=== PATIENT | male | born 1955 | race Caucasian/White ===

== ENCOUNTER 2021-02-16 10:43 | Inpatient (IN) | payer OTHER, SELFPAY ==
[2021-02-16] VITALS (7 sets, daily range): BP systolic 99–134; BP diastolic 54–96; PULSE 89–103; RESP 16–18; TEMP 36.9–39.4; O2SAT 94–97; BMI 28.8
--- NOTE | ~2021-02-16 | CT_ITS ---
EXAMINATION: CT ABDOMEN AND PELVIS WITH CONTRAST CLINICAL INFORMATION: Rectal pain. History of perirectal fistula. Evaluate for abscess. COMPARISON: Previous CT of the abdomen and pelvis most recent January 2017 TECHNIQUE: Multidetector volumetric images were obtained from the superior aspect of the liver through the pubic symphysis following administration 85 mL of Omnipaque 350 intravenous contrast. Sagittal and coronal reformatted images were obtained on the technologist's workstation. Oral contrast: Yes This CT examination was performed using dose optimization techniques as appropriate, variously including the following: *Automated exposure control *Adjustment of mA and/or kV according to patient size (this includes techniques or standardized protocols for targeted exams where dose is matched to indication/reason for exam; i.e. extremities or head) *Use of iterative reconstruction technique DLP: 849 mGy-cm FINDINGS: LUNG BASES: The visualized lung bases are unremarkable. LIVER, GALLBLADDER, AND BILIARY TREE: The liver is normal in size, shape, and attenuation. No focal hepatic lesion or biliary ductal dilatation is present. The gallbladder is unremarkable with no evidence of radiopaque gallstones, gallbladder wall thickening, or obvious pericholecystic inflammatory changes. PANCREAS: Unremarkable. SPLEEN: Unremarkable. ADRENAL GLANDS: Unremarkable. KIDNEYS AND URETERS: The kidneys are normal in size, shape, and attenuation. No hydronephrosis, hydroureter, or calculi seen. No perinephric stranding. BLADDER: Unremarkable. GASTROINTESTINAL TRACT: There is abnormal soft tissue seen adjacent to the posterior rectum. This abuts the left posterior wall of the rectum at approximately the 5:00 axis. Abnormal soft tissue crosses the midline extending to the skin of the right buttock. This has a thick slightly high attenuation wall and is lower in attenuation centrally. Appearance is compatible with a fistula. Low-attenuation central component is a suggestive of a possible of fluid in the fistula. This measures 0.5 x 1 x 2 cm in transverse AP and longitudinal dimension. A separate a perirectal abscess is not appreciated. There is diffuse wall thickening of the rectum. There is stranding of the perirectal fat. There are prominent vessels/vasa recta. There is a small perirectal lymph node measuring 6 x 7 mm adjacent to the posterior right rectal wall at the 7:00 axis axial image 70 series 3. There is diverticulosis of the colon. Small and large bowel is otherwise unremarkable. The appendix is unremarkable. ABDOMINAL WALL: There is a small umbilical hernia containing fat. LYMPH NODES: Small perirectal lymph node as described above. No enlarged lymph nodes seen. VASCULAR: Unremarkable. PELVIC VISCERA: Unremarkable. OSSEOUS STRUCTURES: There are degenerative changes of the spine. There is mild retrolisthesis of L3 with respect to L4. CT/CT abdomen pelvis w con IMPRESSION: Abnormal soft tissue extending from the left posterior wall of the rectum at the 5:00 axis crossing the midline ending at the skin surface of the right buttock. CT appearance is compatible with no diagnosis of perirectal fistula. There is a small amount of low central attenuation suggestive of fluid in the fistula tract near the rectum. This measures 0.5 x 1 x 2 cm. A separate perirectal abscess is not seen. There is diffuse wall thickening of the rectum, stranding of the surrounding fat, prominent vascularity and small perirectal lymph node. Findings are suggestive of proctitis.
--- NOTE | 2021-02-16 11:05 | ED.SKABFB ---
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 Patient tells me he has a lot of pain with moving his bowels but is able to pass a small amount of stool. No abdominal pain, nausea, vomiting, rectal bleeding or black or bloody stools. No fevers or chills. Related Data Home Medications Medication Instructions Recorded Confirmed loratadine 10 mg PO DAILY PRN 02/16/21 02/16/21 Allergies Allergy/AdvReac Type Severity Reaction Status Date / Time Penicillins Allergy Mild RASH/VOMITI Unverified 07/30/20 15:37 NG penicillin V Allergy Unknown Verified 11/26/15 00:00 Review of Systems Review of Systems: Yes all other systems are reviewed and are negative Constitutional: Constitutional: Reports no additional constitutional complaints, Denies body ache(s), Denies chills, Denies fever(s), Denies headache(s) and Denies weakness Eyes: Eyes: Reports no additional eye complaints and Denies change in vision ENT: Reports system reviewed and no additional complaints, except as documented, Denies dizziness, Denies headache(s), Denies nasal congestion, Denies nasal discharge and Denies neck pain Cardiovascular: Cardiovascular: Reports no additional cardiovascular complaints, Denies chest pain, Denies leg edema and Denies dyspnea Respiratory: Respiratory: Reports no additional respiratory complaints, Denies cough and Denies dyspnea Gastrointestinal: Gastrointestinal: Reports no additional gastrointestinal complaints, Denies abdominal pain, Denies melena, Denies hematochezia, Denies diarrhea, Denies nausea and Denies vomiting Comments: +rectal pain Genitourinary: Genitourinary: Denies urinary incontinence Musculoskeletal: Musculoskeletal: Reports no additional musculoskeletal complaints, Denies back pain, Denies arthralgias, Denies joint swelling, Denies neck pain, Denies numbness and Denies tingling Integumentary/Breasts: Skin/Breast: Reports system reviewed and no additional complaints, except as docu and Denies rash Neurologic: Reports system reviewed and no additional complaints, except as documented, Denies Abnormal speech present, Denies dizziness, Denies headache(s), Denies numbness, Denies tingling and Denies weakness PMFSH Past Medical History Attestation statement: The following information was validated with the patient. Source: old records reviewed and nursing notes reviewed Medical History Rectal fistula Social History Social History Alcohol intake: never Smoking Status: Former smoker Use of substances other than those prescribed or required for medical reasons: No Advance Directives: Yes Advance Directives Information Provided: No Advance Directives on File: No Physical Exam Vital Signs: Vital Signs: Last Vital Signs Temp 101.8 F H 02/16/21 13:28 Pulse 103 H 02/16/21 13:28 Resp 18 02/16/21 13:28 BP 117/96 H 02/16/21 13:28 Pulse Ox 95 02/16/21 13:28 Body Mass Index 28.8 Const: General: cooperative, healthy appearing, comfortable and no acute distress Orientation/consciousness: patient oriented x3 Limitations: no limitations HENMT: Head: Yes normal to inspection Ears: hearing grossly normal bilaterally General nose exam: Normal external nose present Face and sinus: Yes normal facial exam Mouth: Normal oral and palatal mucosa present Throat: Yes posterior oropharynx normal Eyes: General: appearance normal, both eyes and all related structures Pupils: Equal, round and reactive pupils present Neck: Neck: Yes normal visual inspection Chest: Chest palpation & inspection: normal inspection of the chest Resp: Effort & Inspection: normal respiratory effort Auscultation: clear to auscultation bilaterally Cardio: Rate: regular rate Rhythm: regular rhythm Peripheral pulses: Peripheral pulses 2+ throughout GI: Other: 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 Patient has tenderness from 6:00 to 12:00 and is unable to tolerate a rectal exam. There is no obvious fistula, swelling but there is significant tenderness Inspection: Yes normal to inspection Palpation (GI): Soft to palpation and nontender Auscultation: normal bowel sounds Back/Spine/Pelvis: Thoracic/Lumbar Spine: thoracic and lumbar spine normal to inspection Skin: General skin exam: no rashes or lesions noted Neuro: General: patient oriented x3, no focal motor deficits and normal sensation to monofilament Cranial nerves: Yes Equal, round and reactive pupils present Cognition (Neuro): normal cognition Speech: No Abnormal speech present Gait exam (Neuro): Normal gait present Motor exam (neuro): 5/5 motor strength present throughout Extrem: General: Yes normal to inspection Course Course Course Narrative: 65-year-old male with a past medical history of perirectal fistula here with rectal pain x4 days. Will need labs, CTA/P, analgesia. 1340-Ct shows Abnormal soft tissue extending from the left posterior wall of the rectum at the 5:00 axis crossing the midline ending at the skin surface of the right buttock. CT appearance is compatible with no diagnosis of perirectal fistula. There is a small amount of low central attenuation suggestive of fluid in the fistula tract near the rectum. This measures 0.5 x 1 x 2 cm. A separate perirectal abscess is not seen. There is diffuse wall thickening of the rectum, stranding of the surrounding fat, prominent vascularity and small perirectal lymph node. Findings are suggestive of proctitis. No leukocytosis. Went to evaluate the patient and he now is febrile and tachycardic. At this time infection is suspected. Antibiotics ordered. -1340- discussed with Dr. Ruiz from surgery. He will admit the patient MDM - Skin/Abscess/Foreign Bdy MDM Narrative Medical decision making narrative: Perirectal abscess, perirectal fistula, proctitis Medical Records Attestation: I reviewed the patient's medical records. Lab Data Attestation: I reviewed the patient's lab results. Result diagrams: 02/16/21 11:14 02/16/21 11:14 Labs: Lab Results 02/16/21 02/16/21 02/16/21 Range/Units 11:14 11:14 11:14 WBC 6.0 (4.8-10.8) X10*3/uL RBC 4.81 (4.60-5.80) X10*6/uL Hgb 14.3 (14.0-18.0) g/dl Hct 43.7 (42-52) % MCV 90.9 (80-98) fL MCH 29.7 (27.0-33.0) pg MCHC 32.7 (31.0-36.0) g/dl RDW 12.5 (11.0-16.0) % Plt Count 186 (160-400) X10*3/uL MPV 9.6 (9.4-12.4) fL Immature Gran % (Auto) 0.3 (0.0-0.4) % Neut % (Auto) 73.7 H (45-73) % Lymph % (Auto) 14.4 L (20-40) % [place] % (Auto) 9.6 (2-11) % Eos % (Auto) 1.7 (0-4) % Baso % (Auto) 0.3 (0-2) % Lymph # (Auto) 0.9 L (1.2-4.9) X10*3/uL [place] # (Auto) 0.6 (0.1-1.2) X10*3/uL Eos # (Auto) 0.1 (0.0-0.4) X10*3/uL Baso # (Auto) 0.0 (0.0-0.2) X10*3/uL Abs Immat Gran (auto) 0.02 (0.00-0.03) X10*3/uL Absolute Neuts (auto) 4.4 (2.0-8.3) X10*3/uL Absolute Nucleated RBC 0.000 (0.0-0.012) X10*3/uL Nucleated RBC % (auto) 0.0 (0.0-0.2) /100WBC Hold Blue Top SEE NOTE Sodium 139 (135-145) mmol/L Potassium 3.9 (3.3-5.1) mmol/L Chloride 104 (96-108) mmol/L Carbon Dioxide 30 H (22-29) mmol/L Anion Gap 9 L (12-20) BUN 7 L (9-16) mg/dL Creatinine 0.86 (0.5-1.4) mg/dL Estim Creat Clear Calc 94.2 Estimated GFR > 60 Random Glucose 118 H (60-115) mg/dL Lactic Acid (0.5-2.0) mmol/L Calcium 8.3 L (8.4-10.2) mg/dL Total Bilirubin 1.0 (0.0-1.0) mg/dL Direct Bilirubin 0.3 (0.0-0.5) mg/dL AST 16 (5-37) U/L ALT 20 (0-40) U/L Alkaline Phosphatase 88 (39-117) U/L Total Protein 6.8 (6.5-8.0) g/dL Albumin 3.9 (3.5-5.0) g/dL /05/03 Range/Units 11:15 WBC (4.8-10.8) X10*3/uL RBC (4.60-5.80) X10*6/uL Hgb (14.0-18.0) g/dl Hct (42-52) % MCV (80-98) fL MCH (27.0-33.0) pg MCHC (31.0-36.0) g/dl RDW (11.0-16.0) % Plt Count (160-400) X10*3/uL MPV (9.4-12.4) fL Immature Gran % (Auto) (0.0-0.4) % Neut % (Auto) (45-73) % Lymph % (Auto) (20-40) % [place] % (Auto) (2-11) % Eos % (Auto) (0-4) % Baso % (Auto) (0-2) % Lymph # (Auto) (1.2-4.9) X10*3/uL [place] # (Auto) (0.1-1.2) X10*3/uL Eos # (Auto) (0.0-0.4) X10*3/uL Baso # (Auto) (0.0-0.2) X10*3/uL Abs Immat Gran (auto) (0.00-0.03) X10*3/uL Absolute Neuts (auto) (2.0-8.3) X10*3/uL Absolute Nucleated RBC (0.0-0.012) X10*3/uL Nucleated RBC % (auto) (0.0-0.2) /100WBC Hold Blue Top Sodium (135-145) mmol/L Potassium (3.3-5.1) mmol/L Chloride (96-108) mmol/L Carbon Dioxide (22-29) mmol/L Anion Gap (12-20) BUN (9-16) mg/dL Creatinine (0.5-1.4) mg/dL Estim Creat Clear Calc Estimated GFR Random Glucose (60-115) mg/dL Lactic Acid 1.1 (0.5-2.0) mmol/L Calcium (8.4-10.2) mg/dL Total Bilirubin (0.0-1.0) mg/dL Direct Bilirubin (0.0-0.5) mg/dL AST (5-37) U/L ALT (0-40) U/L Alkaline Phosphatase (39-117) U/L Total Protein (6.5-8.0) g/dL Albumin (3.5-5.0) g/dL Imaging Data CT scan - abdomen: Attestation: I personally reviewed and interpreted this imaging study as follows: Radiologist's impression: Abnormal soft tissue extending from the left posterior wall of the rectum at the 5:00 axis crossing the midline ending at the skin surface of the right buttock. CT appearance is compatible with no diagnosis of perirectal fistula. There is a small amount of low central attenuation suggestive of fluid in the fistula tract near the rectum. This measures 0.5 x 1 x 2 cm. A separate perirectal abscess is not seen. There is diffuse wall thickening of the rectum, stranding of the surrounding fat, prominent vascularity and small perirectal lymph node. Findings are suggestive of proctitis. Discharge Plan Discharge Clinical Impression: Fistula, perirectal, Acute proctitis, Fever Patient Disposition: Admitted As Inpatient
[2021-02-16] MEDS: Morphine Sulfate 4 MG/ML CARTRIDGE IVPUSH (11:20)
[2021-02-16 11:22] LABS: MANUAL DIFF FLAG NO
[2021-02-16 11:23] LABS: Basophils Percent Auto 0.3 % (0-2); Eosinophils Absolute Auto 0.1 X10*3/uL (0.0-0.4); Eosinophils Percent Auto 1.7 % (0-4); Hematocrit 43.7 % (42-52); Hemoglobin 14.3 g/dl (14.0-18.0); Imm Gran Abs Auto 0.02 X10*3/uL (0.00-0.03); Imm Gran Pct Auto 0.3 % (0.0-0.4); Lymphocytes Absolute Auto 0.9 X10*3/uL (1.2-4.9); Lymphocytes Percent Auto 14.4 % (20-40); Mean Corpuscular HGB Conc 32.7 g/dl (31.0-36.0); Mean Corpuscular Hemoglobin 29.7 pg (27.0-33.0); Mean Corpuscular Volume 90.9 fL (80-98); Mean Platelet Volume 9.6 fL (9.4-12.4); Monocytes Absolute Auto 0.6 X10*3/uL (0.1-1.2); Monocytes Percent Auto 9.6 % (2-11); Neutrophils Absolute Auto 4.4 X10*3/uL (2.0-8.3); Neutrophils Percent Auto 73.7 % (45-73); Platelet Count 186 X10*3/uL (160-400); Red Blood Count 4.81 X10*6/uL (4.60-5.80); Red Cell Distribution Width 12.5 % (11.0-16.0)
[2021-02-16 11:49] LABS: Lactic Acid 1.1 mmol/L (0.5-2.0)
[2021-02-16 11:55] LABS: Alanine Aminotransferase 20 U/L (0-40); Albumin Level 3.9 g/dL (3.5-5.0); Alkaline Phosphatase 88 U/L (39-117); Anion Gap 9 (12-20); Aspartate Amino Transferase 16 U/L (5-37); Bilirubin Direct 0.3 mg/dL (0.0-0.5); Blood Urea Nitrogen 7 mg/dL (9-16); Calcium 8.3 mg/dL (8.4-10.2); Carbon Dioxide 30 mmol/L (22-29); Chloride 104 mmol/L (96-108); Creatinine Clr Calc Pharmacy 94.2; Estimated Glomerular Filt Rate > 60; Glucose Random 118 mg/dL (60-115); Potassium 3.9 mmol/L (3.3-5.1); Sodium 139 mmol/L (135-145); Total Protein 6.8 g/dL (6.5-8.0)
[2021-02-16] MEDS: iohexoL 350 MG/ML 100 ML INFUS..BTL IV (12:46)
--- NOTE | 2021-02-16 13:27 | PC.NURSE ---
patient a&ox3, pt c/o 02/20 pain and states at times it feels like a knife jabbing into him, will notify provider, vitals remain stable, will continue to monitor.
[2021-02-16] MEDS: Acetaminophen 325 MG TABLET 650 MG PO (13:48)
[2021-02-16] MEDS: metroNIDAZOLE/NS 500 MG/100 ML PIGGYBACK 100 MG IV ×2 (13:48→20:57)
--- NOTE | 2021-02-16 13:50 | PC.NURSE ---
patient medicated per order, covid swab obtained, vitals obtained
[2021-02-16 14:13] LABS: COVID-19 Test Negative (Negative); IDNOW Serial# 9DD0AD1C
--- NOTE | 2021-02-16 14:40 | PM.HPGS ---
History of Present Illness History of Present Illness Date of Service: 02/16/21 Chief complaint: Perianal fistula SIRS Narrative: Jelani Costa is a 65 year old male with a long history of a perirectal fistula with a previous history of surgery on several occasions approximately 25 years ago now presenting with a new area of infection with drainage again involving the perirectal fistula. He denies fever chills at home but perianal pain. Upon presentation to the emergency department the patient was found to be tachycardic with an elevated temp. He was also found to have discharge from the perianal skin. CT of the abdomen and pelvis revealed: ?There is abnormal soft tissue seen adjacent to the posterior rectum. This abuts the left posterior wall of the rectum at approximately the 5:00 axis. Abnormal soft tissue crosses the midline extending to the skin of the right buttock. This has a thick slightly high attenuation wall and is lower in attenuation centrally. Appearance is compatible with a fistula. Low-attenuation central component is a suggestive of a possible of fluid in the fistula. This measures 0.5 x 1 x 2 cm in transverse AP and longitudinal dimension. A separate a perirectal abscess is not appreciated. There is diffuse wall thickening of the rectum. There is stranding of the perirectal fat. There are prominent vessels/vasa recta. There is a small perirectal lymph node measuring 6 x 7 mm adjacent to the posterior right rectal wall at the 7:00 axis axial image 70 series 3. There is diverticulosis of the colon. Small and large bowel is otherwise unremarkable. The appendix is unremarkable.? The patient is admitted to the surgical service for IV antibiotics and further management of perianal fistula. Review of Systems Constitutional: Constitutional: Denies chills, Denies fever(s), Denies headache(s) and Denies poor appetite ENT: Denies dizziness and Denies headache(s) Cardiovascular: Cardiovascular: Denies chest pain, Denies rapid heart rate, Denies palpitations and Denies slow heart rate Respiratory: Respiratory: Denies chest congestion, Denies cough, Denies pain on inspiration and Denies wheezing Gastrointestinal: Gastrointestinal: Reports as per HPI, Denies abdominal pain, Denies bloating, Denies change in stool character, Denies constipation, Denies diarrhea, Denies nausea, Denies vomiting and Denies hematemesis Musculoskeletal: Musculoskeletal: Denies back pain, Denies arthralgias, Denies joint swelling and Denies numbness Integumentary/Breasts: Skin/Breast: Denies change in pigmentation, Denies erythema and Denies rash Neurologic: Denies dizziness, Denies headache(s) and Denies numbness Psychiatric: Psychiatric: Denies anxiety and Denies depression Endocrine: Endocrine: Denies palpitations Hematologic/Lymphatic: Hematologic/Lymphatic: Denies easy bleeding, Denies easy bruising and Denies lymphadenopathy Allergic/Immunologic: Allergic/Immunologic: Denies wheezing PMFSH Past Medical History Medical History Rectal fistula Social History Social History Alcohol intake: never Smoking Status: Former smoker Use of substances other than those prescribed or required for medical reasons: No Advance Directives: Yes Advance Directives Information Provided: No Advance Directives on File: No Meds Allergies Allergy/AdvReac Type Severity Reaction Status Date / Time Penicillins Allergy Mild RASH/VOMITI Unverified 07/30/20 15:37 NG penicillin V Allergy Unknown Verified 11/26/15 00:00 Active Medications: Current Medications Generic Name Dose Route Start Last Admin Trade Name Freq PRN Reason Stop Dose Admin Levofloxacin 750 mg in 150 mls @ 100 mls/hr 02/16/21 13:36 Levaquin IV 02/16/21 15:05 ONCE ONE Pharmacy Consult 1 each 02/16/21 13:37 Consult Rx Perform Med Rec MISCELLANE ONCE PRN Consult order Home Medications Medication Instructions Recorded Confirmed Last Taken Type loratadine 10 mg PO DAILY PRN 02/16/21 02/16/21 Unknown History Physical Exam Vital Signs: Vital Signs: Last Vital Signs Temp 101.8 F H 02/16/21 13:28 Pulse 103 H 02/16/21 13:28 Resp 18 02/16/21 13:28 BP 117/96 H 02/16/21 13:28 Pulse Ox 95 02/16/21 13:28 Body Mass Index 28.8 Const: General: cooperative, comfortable and well developed Nutritional Appearance: well nourished Orientation/consciousness: patient oriented x3 Eyes: Sclerae: sclerae normal EOM: EOMs intact bilaterally Neck: Neck: Yes normal visual inspection Resp: Effort & Inspection: normal respiratory effort, no cough, no respiratory distress and no stridor Cardio: Jugular venous distension: no JVD GI: Other: Rectal examination reveals a fistulous tract located in the right perianal wall with scar tissue surrounding this. A thin purulence discharge is noted. No erythema is appreciated but there is some mild tenderness to deep palpation. Inspection: Yes normal to inspection Palpation (GI): Soft to palpation, nontender, no guarding and not rigid Skin: General skin exam: dry skin Rashes: no rashes Neuro: General: patient oriented x3 and no focal motor deficits Extrem: General: Yes full ROM and Yes no clubbing, cyanosis or edema Psych: Appearance: grossly normal Results Results Labs: Short CBC 02/16/21 Range/Units 11:14 WBC 6.0 (4.8-10.8) X10*3/uL Hgb 14.3 (14.0-18.0) g/dl Hct 43.7 (42-52) % Plt Count 186 (160-400) X10*3/uL BMP 02/16/21 11:14 Sodium 139 Potassium 3.9 Chloride 104 Carbon Dioxide 30 H BUN 7 L Creatinine 0.86 Calcium 8.3 L Liver Function 02/16/21 Range/Units 11:14 Total Bilirubin 1.0 (0.0-1.0) mg/dL Direct Bilirubin 0.3 (0.0-0.5) mg/dL AST 16 (5-37) U/L ALT 20 (0-40) U/L Alkaline Phosphatase 88 (39-117) U/L Albumin 3.9 (3.5-5.0) g/dL Assessment and Plan (1) Fistula, perirectal: Status: Acute 65-year-old male patient with a known history of andrew rectal fistulous presenting with a recurrence fistula with pain and SIRS. Wound is open and draining. He will be admitted to the surgical service for IV antibiotics and further wound management. Review the plan with the patient and he expressed understanding and agrees with the plan. (2) Acute proctitis: Status: Acute (3) Fever: Status: Acute
[2021-02-16] MEDS: levoFLOXacin/D5W 750 MG/150 ML PIGGYBACK 100 MG IV (14:54)
[2021-02-16] MEDS: 0.9 % Sodium Chloride 1,000 ML 999 ML IV (14:54)
--- NOTE | 2021-02-16 14:59 | PC.NURSE ---
patient a&ox3, oob to urinate, ivf and antibiotics running per order, vss, will continue to monitor
--- NOTE | 2021-02-16 17:06 | PC.NURSE ---
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
--- NOTE | 2021-02-16 17:11 | PC.NURSE ---
report called to floor
[2021-02-16] MEDS: 0.9 % Sodium Chloride Flush 3 ML SYRINGE IVFLUSH (20:57)
[2021-02-16] MEDS: Dextrose 5 % and Lactated Ring 1,000 ML 100 ML IVCONT (20:58)
[2021-02-17] MEDS: 0.9 % Sodium Chloride Flush 3 ML SYRINGE IVFLUSH (00:06)
[2021-02-17] MEDS: Acetaminophen 325 MG TABLET 650 MG PO (00:07)
[2021-02-17 01:33] VITALS: TEMP 37.7
[2021-02-17 03:23] VITALS: BP 98/71; PULSE 82; RESP 18; TEMP 37.3; O2SAT 94
[2021-02-17] MEDS: metroNIDAZOLE/NS 500 MG/100 ML PIGGYBACK 100 MG IV (05:32)
[2021-02-17 06:45] LABS: MANUAL DIFF FLAG NO
[2021-02-17 06:56] LABS: Basophils Percent Auto 0.4 % (0-2); Eosinophils Percent Auto 0.4 % (0-4); Hematocrit 39.4 % (42-52); Hemoglobin 13.1 g/dl (14.0-18.0); Imm Gran Abs Auto 0.02 X10*3/uL (0.00-0.03); Imm Gran Pct Auto 0.4 % (0.0-0.4); Lymphocytes Absolute Auto 1.6 X10*3/uL (1.2-4.9); Lymphocytes Percent Auto 27.4 % (20-40); Mean Corpuscular HGB Conc 33.2 g/dl (31.0-36.0); Mean Corpuscular Hemoglobin 29.9 pg (27.0-33.0); Mean Platelet Volume 9.8 fL (9.4-12.4); Monocytes Absolute Auto 0.8 X10*3/uL (0.1-1.2); Monocytes Percent Auto 14.4 % (2-11); Neutrophils Absolute Auto 3.3 X10*3/uL (2.0-8.3); Platelet Count 168 X10*3/uL (160-400); Red Blood Count 4.38 X10*6/uL (4.60-5.80); Red Cell Distribution Width 12.3 % (11.0-16.0); White Blood Count 5.7 X10*3/uL (4.8-10.8)
[2021-02-17 07:24] LABS: Anion Gap 10 (12-20); Blood Urea Nitrogen 8 mg/dL (9-16); Calcium 8.1 mg/dL (8.4-10.2); Carbon Dioxide 27 mmol/L (22-29); Chloride 105 mmol/L (96-108); Creatinine Clr Calc Pharmacy 94.2; Estimated Glomerular Filt Rate > 60; Glucose Random 108 mg/dL (60-115); Potassium 3.9 mmol/L (3.3-5.1); Sodium 138 mmol/L (135-145)
[2021-02-17 07:51] VITALS: BP 109/66; PULSE 80; RESP 19; TEMP 37; O2SAT 96
[2021-02-17] MEDS: Dextrose 5 % and Lactated Ring 1,000 ML 100 ML IVCONT (08:07)
[2021-02-17 11:41] VITALS: BP 111/74; PULSE 79; RESP 18; TEMP 36.9; O2SAT 94
--- NOTE | 2021-02-17 11:55 | MHC.CM.PN ---
CM met with patient at the bedside who reports he is independent and lives alone. Patient does have a HCP/brother Jaylon Costa [phone] and a copy is on file. Discussed discharge plan, home no services. Patient will need assistance with transportation at discharge. CM will continue to follow for discharge needs.
--- NOTE | 2021-02-17 12:41 | MHC.CM.PN ---
Patient will be discharged home today no services. [facility] [place] shuttle bus will provide transport home at 2pm. Patient, nurse aware.
--- NOTE | 2021-02-17 12:42 | P.DS_ITS ---
DS: Providers Provider Date of Service: 02/17/21 Date of admission: 02/16/21 13:44 Date of discharge: 02/17/21 Primary care physician: Unknown Physician Admitting clinician: Devin Ruiz Discharging clinician: Devin Ruiz DS: Diagnosis Discharge Diagnosis (1) Fistula, perirectal: Status: Acute (2) Acute proctitis: Status: Acute (3) Fever: Status: Acute DS: Medications Discharge Medications Home Medications: Home Medications Medication Instructions Recorded Confirmed loratadine 10 mg PO DAILY PRN 02/16/21 02/16/21 Previous Rx's Medication Instructions Recorded oxycodone 5 mg PO Q6H PRN #10 cap 02/17/21 DS: Summary Hospital Course Hospital Course: Jelani Costa is a 65 year old male with a long history of a perirectal fistula with a previous history of surgery on several occasions approximately 25 years ago now presenting with a new area of infection with drainage again involving the perirectal fistula. He denies fever chills at home but perianal pain. Upon presentation to the emergency department the patient was found to be tachycardic with an elevated temp. He was also found to have discharge from the perianal skin. CT of the abdomen and pelvis revealed: ?There is abnormal soft tissue seen adjacent to the posterior rectum. This abuts the left posterior wall of the rectum at approximately the 5:00 axis. Abnormal soft tissue crosses the midline extending to the skin of the right buttock. This has a thick slightly high attenuation wall and is lower in attenuation centrally. Appearance is compatible with a fistula. Low-attenuation central component is a suggestive of a possible of fluid in the fistula. This measures 0.5 x 1 x 2 cm in transverse AP and longitudinal dimension. A separate a perirectal abscess is not appreciated. There is diffuse wall thickening of the rectum. There is stranding of the perirectal fat. There are prominent vessels/vasa recta. There is a small perirectal lymph node measuring 6 x 7 mm adjacent to the posterior right rectal wall at the 7:00 axis axial image 70 series 3. There is diverticulosis of the colon. Small and large bowel is otherwise unremarkable. The appendix is unremarkable.? The patient is admitted to the surgical service for IV antibiotics and further management of perianal fistula. By the next hospital day the patient reported feeling much improved after being on the antibiotics. He was evaluated by Dr. Burciaga who will see the patient as an outpatient for further management. His wounds were much improved but continued to drain. Patient felt comfortable for discharge and will be placed on oral antibiotics as an outpatient. He will follow up with Dr. Burciaga in 1-2 weeks. Time Spent with Patient Time attestation: Total time spent providing and/or coordinating discharge services: Discharge coordination time: Less than 30 minutes Physical Exam Vital Signs: Vital Signs: Last Vital Signs Temp 98.4 F 02/17/21 11:41 Pulse 79 02/17/21 11:41 Resp 18 02/17/21 11:41 BP 111/74 02/17/21 11:41 Pulse Ox 94 02/17/21 11:41 Body Mass Index 28.8 Const: General: cooperative, healthy appearing, comfortable, no acute distress and well developed Resp: Effort & Inspection: normal respiratory effort, no stridor and not tachypneic Auscultation: no rhonchi and no wheezes Cardio: Jugular venous distension: no JVD GI: Inspection: Yes normal to inspection Palpation (GI): Soft to palpation Percussion: Yes normal to percussion Rectal Exam - Male: Yes normal sphincter tone and Yes Fistula present (GI) (With discharge, no bleeding) Skin: General skin exam: no rashes or lesions noted Extrem: General: Yes no clubbing, cyanosis or edema DS: Data Data Completed and Pending Labs on day of discharge: Laboratory Results - last 24 hr 02/16/21 02/17/21 02/17/21 13:47 06:17 06:17 WBC 5.7 RBC 4.38 L Hgb 13.1 L Hct 39.4 L MCV 90.0 MCH 29.9 MCHC 33.2 RDW 12.3 Plt Count 168 MPV 9.8 Immature Gran % (Auto) 0.4 Neut % (Auto) 57.0 Lymph % (Auto) 27.4 [place] % (Auto) 14.4 H Eos % (Auto) 0.4 Baso % (Auto) 0.4 Lymph # (Auto) 1.6 [place] # (Auto) 0.8 Eos # (Auto) 0.0 Baso # (Auto) 0.0 Abs Immat Gran (auto) 0.02 Absolute Neuts (auto) 3.3 Absolute Nucleated RBC 0.000 Nucleated RBC % (auto) 0.0 Sodium 138 Potassium 3.9 Chloride 105 Carbon Dioxide 27 Anion Gap 10 L BUN 8 L Creatinine 0.86 Estim Creat Clear Calc 94.2 Estimated GFR > 60 Random Glucose 108 Calcium 8.1 L COVID-19 ([facility]KE) Negative COVID-19 Clin Com See Note Discharge Plan Discharge Patient Disposition: Home, Self-Care Referrals: Jostin Burciaga MD [Physician] - 1 Week Physician,Unknown [Primary Care Provider] - Discharge Medications: New ciprofloxacin HCl 500 mg tablet 500 mg PO Q12H Qty: 20 RF: 0 metronidazole [Flagyl] 500 mg tablet 500 mg PO TID Qty: 30 RF: 0 oxycodone 5 mg capsule 5 mg PO Q6H PRN (Reason: pain) Qty: 10 RF: 0 Continued loratadine 10 mg tablet 10 mg PO DAILY PRN (Reason: allergies) RF: 0 Discharge Orders: Discharge Order (Routine); Ordered 02/17/21 Ordered By: Devin Ruiz Diet: advance to usual diet Activity on Discharge: As tolerated Stand Alone Forms: Patient Portal Discharge page Care Plan Goals: resolution of rectal symptoms Health Concerns: Acute proctitis, perianal fistula Plan of Treatment: Oral antibiotics, follow up with Dr. Burciaga Assessment: Acute prostatitis and perianal fistula Discharge Date/Time: 02/17/21 13:50
== END 2021-02-17 13:50 | disposition home or self-care (01) | DRG 395 ==
LOC: HO.ED 13:40 → HO.EDOVER 13:55 → HO.IMC 15:52
PROVIDERS: Nurse Practitioner Family; Admitting Provider Surgery; Emergency Provider Emergency Medicine; PCP Nurse Practitioner Primary Care; Visit Provider Surgery
DX: K60.4 Rectal fistula (principal); K62.89 Other specified diseases of anus and rectum; Z87.891 Personal history of nicotine dependence; Z20.822 Contact with and (suspected) exposure to COVID-19; Z88.0 Allergy status to penicillin; Z79.899 Other long term (current) drug therapy
CPT/HCPCS: 36415; 74177; 80048; 80076; 83605; 85025; 87040; 87635; 96365; 96366; 96375; 99285; J1956; J2270; Q9967

== ENCOUNTER → 2021-02-22 15:00 | Outpatient (BNVA) | payer OTHER, SELFPAY | PROVIDERS: PCP Internal Medicine Geriatric Medicine; Visit Provider Surgery | DX: K60.4 Rectal fistula (principal) | CPT/HCPCS: 46600; 99212 ==

== ENCOUNTER 2021-04-02 09:00 | Outpatient (REF) | payer OTHER, SELFPAY ==
--- NOTE | ~2021-04-02 | XR_ITS ---
EXAMINATION: XR RIBS, LEFT CLINICAL INFORMATION: Pleurodynia COMPARISON: Previous chest x-ray October 2014 TECHNIQUE: 3 views of the left ribs and one view of the chest were obtained. FINDINGS: The cardiac and mediastinal contours are normal. The lungs are clear. There is left lateral pleural thickening adjacent to the left eighth and ninth ribs. There is no pleural effusion. There is no pneumothorax. There is a angulation of the left anterior ninth rib suggestive of fracture. No lucent fracture line is seen and appearance is more suggestive of an old than acute fracture. XR/XR ribs LT min 3V w CXR1V IMPRESSION: Pleural thickening adjacent to the left lateral eighth and ninth ribs. Probable old fracture of the left anterior ninth rib.
== END 2021-04-02 09:01 | disposition home or self-care (01) ==
LOC: HO.XRAY 09:00
PROVIDERS: PCP Nurse Practitioner Primary Care; Visit Provider Nurse Practitioner Primary Care
DX: R07.81 Pleurodynia (principal)
CPT/HCPCS: 71101

== ENCOUNTER 2021-05-24 15:23 | Outpatient (REF) | payer OTHER, SELFPAY ==
--- NOTE | ~2021-05-24 | US_ITS ---
EXAMINATION: US VENOUS ULTRASOUND WITH DOPPLER LOWER EXTREMITY, LEFT CLINICAL INFORMATION: Pain COMPARISON: None TECHNIQUE: Ultrasound of the deep veins is performed from the hip to the calf with compression sonography and color and pulse Doppler assessment. Spectral analysis with color-flow imaging is performed. FINDINGS: There is normal venous compression and respiratory variation and augmented flow. The visualized common femoral vein, superficial femoral vein, profunda femoral vein, popliteal vein, and the trifurcation region shows no evidence of deep venous thrombosis. There is no significant popliteal fossa cyst. US/US venous duplex LE LT IMPRESSION: No DVT demonstrated in the left lower extremity.
== END 2021-05-24 15:24 | disposition home or self-care (01) ==
LOC: HO.US 15:23
PROVIDERS: PCP Nurse Practitioner Primary Care; Visit Provider Emergency Medicine
DX: S76.312A Strain of muscle, fascia and tendon of the posterior muscle group at thigh level, left thigh, initial encounter (principal); X58.XXXA Exposure to other specified factors, initial encounter; Y93.9 Activity, unspecified; Y92.9 Unspecified place or not applicable; Y99.9 Unspecified external cause status
CPT/HCPCS: 93971

== ENCOUNTER 2021-11-20 11:39 | Emergency (ER) | payer OTHER, SELFPAY ==
--- NOTE | 2021-11-20 11:41 | ECG_ITS ---
Test Reason : general medical Blood Pressure : / mmHG Vent. Rate : 063 BPM Atrial Rate : 063 BPM P-R Int : 182 ms QRS Dur : 088 ms QT Int : 388 ms P-R-T Axes : 052 035 043 degrees QTc Int : 397 ms Normal sinus rhythm Normal ECG When compared with ECG of 15-NOV-2012 10:31, No significant change was found Referred By: Fabio Everett Electronically Signed By:LORY BRUCE MD
[2021-11-20 12:13] VITALS: BP 141/81; PULSE 58; RESP 18; TEMP 36.6; O2SAT 99; BMI 30.4
[2021-11-20 14:22] LABS: MANUAL DIFF FLAG NO
[2021-11-20 14:33] LABS: Basophils Percent Auto 0.3 % (0-2); Eosinophils Absolute Auto 0.2 X10*3/uL (0.0-0.4); Eosinophils Percent Auto 3.3 % (0-4); Imm Gran Abs Auto 0.05 X10*3/uL (0.00-0.03); Imm Gran Pct Auto 0.8 % (0.0-0.4); Lymphocytes Absolute Auto 1.7 X10*3/uL (1.2-4.9); Lymphocytes Percent Auto 27.4 % (20-40); Mean Corpuscular HGB Conc 34.1 g/dl (31.0-36.0); Mean Corpuscular Hemoglobin 30.9 pg (27.0-33.0); Mean Corpuscular Volume 90.5 fL (80.0-98.0); Monocytes Absolute Auto 0.5 X10*3/uL (0.1-1.2); Monocytes Percent Auto 7.5 % (2-11); Neutrophils Absolute Auto 3.8 x10*3/uL (2.0-8.3); Neutrophils Percent Auto 60.7 % (45-73); Platelet Count 203 X10*3/uL (160-400); Red Blood Count 4.86 X10*6/uL (4.60-5.80); Red Cell Distribution Width 11.9 % (11.0-16.0); White Blood Count 6.3 X10*3/uL (4.8-10.8)
[2021-11-20 14:39] LABS: COVID-19 Test Negative (Negative)
[2021-11-20 14:39] LABS: Alanine Aminotransferase 19 U/L (0-40); Alkaline Phosphatase 80 U/L (39-117); Anion Gap 10 (12-20); Aspartate Amino Transferase 15 U/L (5-37); Bilirubin Total 0.4 mg/dL (0.0-1.0); Blood Urea Nitrogen 9 mg/dL (9-16); Calcium 9.5 mg/dL (8.4-10.2); Carbon Dioxide 28 mmol/L (22-29); Chloride 106 mmol/L (96-108); Creatinine Clr Calc Pharmacy 96.4; Estimated Glomerular Filt Rate > 60; Glucose Random 108 mg/dL (60-115); Magnesium 2.2 mg/dL (1.6-2.6); Potassium 4.6 mmol/L (3.3-5.1); Sodium 139 mmol/L (135-145); Total Protein 7.2 g/dL (6.5-8.0)
[2021-11-20] MEDS: Clindamycin HCL 300 MG CAPSULE PO (14:40)
[2021-11-20] MEDS: oxyCODONE HCl Immed Release 5 MG TABLET PO (14:40)
[2021-11-20] MEDS: Ibuprofen 800 MG TABLET PO (14:40)
[2021-11-20 14:45] LABS: Troponin-I High Sensitivity < 3.5 ng/L (<3.5-35.0)
--- NOTE | 2021-11-20 14:47 | ED.DENTAL ---
HPI - Dental/Oral General Chief complaint: Dental/Oral Stated complaint: chest pain Time Seen by Provider: 11/20/21 11:41 Source: patient Mode of arrival: ambulatory Limitations: language barrier ([place]er-speaking) History of Present Illness HPI Narrative: 66-year-old male who arrived via EMS complaining of chest pain to get here by EMS although when he arrived in triage she denied any chest pain and started to say he had right upper dental pain for the past few days worse today. He continues to deny any chest pain although due to reported chest pain before he did have EKG and labs drawn while he was in the waiting room. At this time patient denies any cardiac-related complaints reports that he was only here for dental pain. Reports that his right upper molar hurts. He denies any other symptoms complaints or concerns at this time. MD Complaint: tooth pain Teeth map: 1. Onset (ago): day(s) (2) Duration: worsening Severity: moderate Relieving factors: nothing Exacerbating factors: chewing, cold, heat and drinking fluids Context: history of dental caries and poor dental care Treatment prior to arrival: none Related Data Home Medications Medication Instructions Recorded Confirmed loratadine 10 mg tablet 10 mg PO DAILY PRN 02/16/21 02/22/21 Previous Rx's Medication Instructions Recorded ciprofloxacin HCl 500 mg tablet 500 mg PO Q12H #20 tab 02/17/21 metronidazole 500 mg tablet 500 mg PO TID #30 tab 02/17/21 (Flagyl) oxycodone 5 mg capsule 5 mg PO Q6H PRN #10 cap 02/17/21 clindamycin HCl 300 mg capsule 600 mg PO TID 10 Days #60 cap 11/20/21 ibuprofen 800 mg tablet 800 mg PO Q8H PRN #14 tab 11/20/21 oxycodone 5 mg tablet 5 mg PO Q6H PRN #14 tab 11/20/21 Allergies Allergy/AdvReac Type Severity Reaction Status Date / Time Penicillins Allergy Mild RASH/VOMITI Verified 02/22/21 13:07 NG Review of Systems Review of Systems: Constitutional : No Fever, No Chills, No changes in PO intake, No difficulty speaking, no recent dental procedure, no heat or cold intolerance while eating, no recent face trauma, ENT/Mouth : + Dental pain, No Sore throat, No Jaw pain, No throat swelling, No swallowing difficulty, no change in voice, No facial swelling, no drooling, no trismus, no bleeding, no lacerations, no tongue swelling, gum swelling, Eyes: No Eye Pain, No periorbital Swelling Cardiovascular : No Chest Pain, No SOB Respiratory : No Cough, No Sputum, No Wheezing, No Smoke Exposure, No Dyspnea Gastrointestinal : No Nausea, No Vomiting, No Diarrhea Genitourinary : No Dysuria Musculoskeletal : No Myalgias Skin : No rash, no facial swelling or redness, Neuro : No Weakness, No Numbness, No Headache Yes all other systems are reviewed and are negative [facility] Past Medical History Attestation statement: The following information was validated with the patient. Medical History Rectal fistula Surgical History History of rectal surgery Family History Family History Father Bone cancer Mother Liver cancer Social History Social History Household Members: Family Housing: House Do you presently have visiting nurse or other home services: No Alcohol intake: never Advance Directives: No Advance Directives Information Provided: No Advance Directives Date on File: 02/16/21 service: No Current occupational status: retired Physical Exam Vital Signs: Vital Signs: Last Vital Signs Temp 98 F 11/20/21 12:13 Pulse 58 11/20/21 12:13 Resp 18 11/20/21 12:13 BP 141/81 H 11/20/21 12:13 Pulse Ox 99 11/20/21 12:13 BMI result Body Mass Index 30.4 vital signs have been reviewed as normal and appeared to be correct. Blood pressure normal. Heart rate normal. Respiration rate normal. Temperature normal. Oxygen saturation normal. Appearance: Alert. Oriented X3. No acute distress. Head: Normal external exam. Normocephalic. Atraumatic. Eyes: PERRLA. EOMI. Conjunctiva and sclera normal. Eyelids normal. ENT: EAC normal. TM's Normal. Pharynx normal. Uvula midline. Moist mucous membranes. No trismus noted. No drooling noted. No muffled voice noted. Dentition: Patient with poor dentition throughout with multiple old fractured teeth with multiple dental caries. Gingival within normal limits. No fluctuance. Not consistent with peritonsillar abscess. Not consistent with dental abscess. No salivary duct obstruction noted. Neck: Normal inspection. Neck supple. FROM. No adenopathy. Thyroid Normal. No meningeal signs. No neck mass noted. Trachea midline. CVS: Normal heart rate and rhythm. Heart sound normal. No murmurs noted. Pulses normal throughout. Respiratory: No respiratory distress. Painless inspiration. Breath sounds normal. No wheezes/rales/rhonchi noted. Chest nontender. No accessory muscle usage noted or decreased air movement noted. Back: Full range of motion noted. Skin: Skin warm and dry. Normal skin color. Normal skin turgor. No rashes/lesions/lacerations noted. Extremities:Extremities exhibit normal range of motion. Extremities nontender. Neuro: Oriented X 3. No motor deficit. No sensory deficit. Reflexes normal. Course Course Course Narrative: 66-year-old male who arrived via EMS complaining of chest pain to get here by EMS although when he arrived in triage she denied any chest pain and started to say he had right upper dental pain for the past few days worse today. He continues to deny any chest pain although due to reported chest pain before he did have EKG and labs drawn while he was in the waiting room. At this time patient denies any cardiac-related complaints reports that he was only here for dental pain. Reports that his right upper molar hurts. He denies any other symptoms complaints or concerns at this time. On exam he has poor dentition throughout with multiple dental caries and old fractures. No trismus/drooling/stridor. Patient tolerating secretions well. Not consistent with peritonsillar/pharyngeal/dental abscess. No muffled voice. Therefore at this time labs were obtained due to patient initially arrived reporting chest pain although now he denies any chest pain labs were obtained and all within normal limits. EKG within normal limits no acute processes are noted. Therefore will DC home with antibiotics and symptomatic treatment for the patient's dental pain and instructions follow-up with PCP and dentist and to return if any new or worsening symptoms. Patient understands agrees to this plan. MDM - Dental/Oral Medical Records Attestation: I reviewed the patient's medical records. Lab Data Attestation: I reviewed the patient's lab results. Result diagrams: 11/20/21 14:17 11/20/21 14:18 Labs: Lab Results 11/20/21 11/20/21 11/20/21 Range/Units 14:17 14:17 14:17 WBC 6.3 (4.8-10.8) X10*3/uL RBC 4.86 (4.60-5.80) X10*6/uL Hgb 15.0 (14.0-18.0) g/dl Hct 44.0 (42.0-52.0) % MCV 90.5 (80.0-98.0) fL MCH 30.9 (27.0-33.0) pg MCHC 34.1 (31.0-36.0) g/dl RDW 11.9 (11.0-16.0) % Plt Count 203 (160-400) X10*3/uL MPV 10.0 (9.4-12.4) fL Immature Gran % (Auto) 0.8 H (0.0-0.4) % Neut % (Auto) 60.7 (45-73) % Lymph % (Auto) 27.4 (20-40) % [place] % (Auto) 7.5 (2-11) % Eos % (Auto) 3.3 (0-4) % Baso % (Auto) 0.3 (0-2) % Lymph # (Auto) 1.7 (1.2-4.9) X10*3/uL [place] # (Auto) 0.5 (0.1-1.2) X10*3/uL Eos # (Auto) 0.2 (0.0-0.4) X10*3/uL Baso # (Auto) 0.0 (0.0-0.2) X10*3/uL Abs Immat Gran (auto) 0.05 H (0.00-0.03) X10*3/uL Absolute Neuts (auto) 3.8 (2.0-8.3) x10*3/uL Absolute Nucleated RBC 0.000 (0.0-0.012) X10*3/uL Nucleated RBC % (auto) 0.0 (0.0-0.2) /100WBC Sodium (135-145) mmol/L Potassium (3.3-5.1) mmol/L Chloride (96-108) mmol/L Carbon Dioxide (22-29) mmol/L Anion Gap (12-20) BUN (9-16) mg/dL Creatinine (0.5-1.4) mg/dL Estim Creat Clear Calc Estimated GFR Random Glucose (60-115) mg/dL Calcium (8.4-10.2) mg/dL Magnesium (1.6-2.6) mg/dL Total Bilirubin (0.0-1.0) mg/dL AST (5-37) U/L ALT (0-40) U/L Alkaline Phosphatase (39-117) U/L Troponin I High Sens < 3.5 (<3.5-35.0) ng/L Total Protein (6.5-8.0) g/dL Albumin (3.5-5.0) g/dL COVID-19 (JAKE) Negative (Negative) COVID-19 Clin Com See Note 11/20/21 Range/Units 14:18 WBC (4.8-10.8) X10*3/uL RBC (4.60-5.80) X10*6/uL Hgb (14.0-18.0) g/dl Hct (42.0-52.0) % MCV (80.0-98.0) fL MCH (27.0-33.0) pg MCHC (31.0-36.0) g/dl RDW (11.0-16.0) % Plt Count (160-400) X10*3/uL MPV (9.4-12.4) fL Immature Gran % (Auto) (0.0-0.4) % Neut % (Auto) (45-73) % Lymph % (Auto) (20-40) % [place] % (Auto) (2-11) % Eos % (Auto) (0-4) % Baso % (Auto) (0-2) % Lymph # (Auto) (1.2-4.9) X10*3/uL [place] # (Auto) (0.1-1.2) X10*3/uL Eos # (Auto) (0.0-0.4) X10*3/uL Baso # (Auto) (0.0-0.2) X10*3/uL Abs Immat Gran (auto) (0.00-0.03) X10*3/uL Absolute Neuts (auto) (2.0-8.3) x10*3/uL Absolute Nucleated RBC (0.0-0.012) X10*3/uL Nucleated RBC % (auto) (0.0-0.2) /100WBC Sodium 139 (135-145) mmol/L Potassium 4.6 (3.3-5.1) mmol/L Chloride 106 (96-108) mmol/L Carbon Dioxide 28 (22-29) mmol/L Anion Gap 10 L (12-20) BUN 9 (9-16) mg/dL Creatinine 0.85 (0.5-1.4) mg/dL Estim Creat Clear Calc 96.4 Estimated GFR > 60 Random Glucose 108 (60-115) mg/dL Calcium 9.5 D (8.4-10.2) mg/dL Magnesium 2.2 (1.6-2.6) mg/dL Total Bilirubin 0.4 (0.0-1.0) mg/dL AST 15 (5-37) U/L ALT 19 (0-40) U/L Alkaline Phosphatase 80 (39-117) U/L Troponin I High Sens (<3.5-35.0) ng/L Total Protein 7.2 (6.5-8.0) g/dL Albumin 4.0 (3.5-5.0) g/dL COVID-19 (JAKE) (Negative) COVID-19 Clin Com ECG Data Attestation: I personally reviewed and interpreted this ECG as follows: ECG interpretation date: 11/20/21 ECG interpretation time: 02:33 Interpretation: Normal sinus rhythm with a ventricular rate of 63 with a normal PA interval normal QRS duration normal QT/QTC interval. No acute ischemic changes are noted. Similar when compared to prior EKG 11/15/2012. Discharge Plan Discharge Clinical Impression: Dental caries, Toothache, Fracture of tooth Patient Disposition: Home, Self-Care Instructions: Toothache (ED) Prescriptions: New clindamycin HCl 300 mg capsule 600 mg PO TID 10 Days Qty: 60 RF: 0 oxycodone 5 mg tablet 5 mg PO Q6H PRN (Reason: pain) Qty: 14 RF: 0 ibuprofen 800 mg tablet 800 mg PO Q8H PRN (Reason: pain) Qty: 14 RF: 0 No Action loratadine 10 mg tablet 10 mg PO DAILY PRN (Reason: allergies) RF: 0 ciprofloxacin HCl 500 mg tablet 500 mg PO Q12H Qty: 20 RF: 0 metronidazole [Flagyl] 500 mg tablet 500 mg PO TID Qty: 30 RF: 0 oxycodone 5 mg capsule 5 mg PO Q6H PRN (Reason: pain) Qty: 10 RF: 0 Referrals: Therese Caro, [employer] [Primary Care Provider] - 2 days (and your dentist) Print Language: [place]er
[2021-11-20 15:03] VITALS: RESP 18
== END 2021-11-20 15:05 | disposition home or self-care (01) ==
PROVIDERS: Physician Assistant; Emergency Provider Internal Medicine; PCP Nurse Practitioner Primary Care
DX: K08.89 Other specified disorders of teeth and supporting structures (principal); K02.9 Dental caries, unspecified; K03.81 Cracked tooth; Z20.822 Contact with and (suspected) exposure to COVID-19
CPT/HCPCS: 80053; 83735; 84484; 85025; 87635; 93005; 99284

== ENCOUNTER 2022-08-19 08:41 | Outpatient (REF) | payer OTHER, SELFPAY ==
--- NOTE | ~2022-08-19 | US_ITS ---
EXAMINATION: US RETROPERITONEAL LIMITED (AORTA) CLINICAL INFORMATION: Nicotine dependence. Screening for cardiovascular disorder. COMPARISON: None TECHNIQUE: Mccarty-scale, color Doppler and spectral Doppler evaluation of the abdominal aorta. FINDINGS: There is mild calcific atherosclerotic disease. The measurements of the aorta in maximum AP and transverse dimensions respectively are as follows: Proximal: 2.4 x 2.9 cm. Mid: 1.7 x 1.7 cm. Distal: 2.0 x 1.9 cm. PSV: 93.0 cm/s. The measurements of the common iliac arteries in maximum AP and TRV dimensions are as follows: Right Common Iliac Artery: 1.2 x 1.1 cm. Left Common Iliac Artery: 1.0 x 1.2 cm. US/US abdominal aortic aneurysm IMPRESSION: No abdominal aortic or iliac artery aneurysm.
== END 2022-08-19 08:42 | disposition home or self-care (01) ==
LOC: HO.US 08:41
PROVIDERS: Visit Provider Nurse Practitioner Primary Care
DX: F17.200 Nicotine dependence, unspecified, uncomplicated (principal); Z13.6 Encounter for screening for cardiovascular disorders
CPT/HCPCS: 76706

== ENCOUNTER → 2023-03-09 15:23 | Outpatient (BNVA) | payer OTHER, SELFPAY | PROVIDERS: PCP Nurse Practitioner Primary Care; Visit Provider Surgery | DX: K64.9 Unspecified hemorrhoids (principal) | CPT/HCPCS: 46600; 99212 ==

== ENCOUNTER 2023-10-10 08:20 | Outpatient (REF) | payer OTHER, SELFPAY ==
--- NOTE | ~2023-10-10 | XR_ITS ---
EXAMINATION: XR CHEST CLINICAL INFORMATION: Shortness of breath COMPARISON: 04/05/2021 PA chest. 11/04/2014 chest radiographs. TECHNIQUE: 2 views of the chest were obtained. FINDINGS: Lungs are well-inflated. There is no gross pneumothorax. Mild linear opacities at the left lung base likely represent atelectasis/scar versus pneumonia. Heart size is normal. Pleural thickening adjacent to the lower left ribs laterally redemonstrated fractures. No pleural effusion. Mild degenerative changes in the thoracic spine XR/XR chest 2V IMPRESSION: Mild linear opacities at the left lung base likely represent atelectasis/scar versus pneumonia.
== END 2023-10-10 08:21 | disposition home or self-care (01) ==
LOC: HO.XRAY 08:20
PROVIDERS: PCP Nurse Practitioner Primary Care; Visit Provider Emergency Medicine
DX: R06.02 Shortness of breath (principal)
CPT/HCPCS: 71046

== ENCOUNTER 2023-11-30 08:09 | Outpatient (REF) | payer OTHER, SELFPAY ==
--- NOTE | ~2023-11-30 | CT_ITS ---
EXAMINATION: CT CHEST WITHOUT CONTRAST CLINICAL INFORMATION: Left lower lobe pleural thickening. COMPARISON: Chest radiographs dated 10/10/2023. TECHNIQUE: Multidetector volumetric CT imaging of the chest was done. Axial MIP volume rendering provided. Sagittal and coronal reformatted images were obtained. This CT examination was performed using dose optimization techniques as appropriate, variously including the following: *Automated exposure control *Adjustment of mA and/or kV according to patient size (this includes techniques or standardized protocols for targeted exams where dose is matched to indication/reason for exam; i.e. 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 LUNGS: There are diffuse centrilobular and paraseptal emphysematous changes. There are numerous bilateral scattered small noncalcified nodules. These are best seen on the MIP projection. The 3 largest within the right upper lobe each measure 4 mm (9:81, 95 and 107). Abutting the accessory fissure (9:118), a 4 mm pleural-based lymph node is seen. At the posterior right base (9:120), a 6 mm benign pleural-based lymph node is seen. Within the anterior segment of the left upper lobe medially (9:91), a dominant 3 mm noncalcified nodule is seen. At the posterior left base (9:109), a 3 mm noncalcified nodule is seen. There is no mass, infiltrate or groundglass opacity. There is no generalized small airway thickening. This central airways appear patent. MEDIASTINUM: The thyroid is unremarkable. There is no thoracic aortic aneurysm. There are mild atherosclerotic calcifications of the great vessel origins and thoracic aorta. No mediastinal or hilar lymphadenopathy is seen. CORONARY ARTERY CALCIFICATION: None visualized on this study. PLEURA: There is no pleural effusion. No pleural mass or thickening. AXILLA: No lymphadenopathy. UPPER ABDOMEN: Unremarkable. OSSEOUS STRUCTURES: At T1-T2, there is marked degenerative disc disease. There is multi-level thoracic spondylosis. No acute or aggressive osseous finding is noted. CT/CT chest wo IV con IMPRESSION: 1. There are multiple small, nonspecific bilateral pulmonary nodules, the largest noncalcified parenchymal nodules measuring 4 mm. According to the UPDATED 2017 Fleischner Society recommendations, the advised follow-up imaging for solid nodules < 6 mm is: LOW RISK PATIENT: No routine follow-up. HIGH RISK PATIENT: Optional CT at 12 months. 2. There are diffuse emphysematous changes. 3. No thoracic lymphadenopathy or pleural effusion is seen. 4. There is marked degenerative disc disease at T1-T2. There is multi-level thoracic spondylosis. No acute or aggressive osseous finding is noted. Fleischner guidelines were followed.
== END 2023-11-30 08:10 | disposition home or self-care (01) ==
LOC: HO.CT 08:09
PROVIDERS: PCP Nurse Practitioner Primary Care; Visit Provider Nurse Practitioner Primary Care
DX: R93.89 Abnormal findings on diagnostic imaging of other specified body structures (principal); J92.9 Pleural plaque without asbestos; F17.210 Nicotine dependence, cigarettes, uncomplicated
CPT/HCPCS: 71250

== ENCOUNTER 2024-03-05 18:15 | Emergency (ER) | payer OTHER, SELFPAY ==
[2024-03-05 18:43] VITALS: BP 110/84; PULSE 82; RESP 18; TEMP 36.3; O2SAT 96; BMI 30.6
--- NOTE | 2024-03-05 18:52 | ED.GENADULT ---
HPI - General Adult General Chief complaint: General Medical Stated complaint: HBP Time Seen by Provider: 03/05/24 18:52 Source: patient and RN notes reviewed Mode of arrival: ambulatory Limitations: no limitations History of Present Illness HPI narrative: This is a 68-year-old male, with a history of hyperlipidemia, who presents emergency department with concerns for high blood pressure. Patient states that he was at home and took his blood pressure and states his blood pressure was 118/80. He does not have a history of hypertension. He states that he took it as his primary care physician told him to start taking his blood pressure. He denies any headaches, lightheadedness, blurred vision, double vision, headaches or dizziness. He is feeling well and would like to be discharged home so he can eat dinner. Denies chest pain, shortness of breath, abdominal pain, nausea, vomiting or diarrhea. No other complaints or concerns at this time. MD complaint: ? High blood pressure Onset (ago): minute(s) Exacerbating factors: none Associated symptoms: denies other symptoms Treatments prior to arrival: none Related Data Home Medications ?Medication ?Instructions ?Recorded ?Confirmed loratadine 10 mg tablet 10 mg PO DAILY PRN allergies 02/16/21 03/09/23 Previous Rx's ?Medication ?Instructions ?Recorded ciprofloxacin HCl 500 mg tablet 500 mg PO Q12H #20 tabs 02/17/21 metronidazole 500 mg tablet 500 mg PO TID #30 tabs 02/17/21 (Flagyl) oxycodone 5 mg capsule 5 mg PO Q6H PRN pain #10 caps 02/17/21 clindamycin HCl 300 mg capsule 600 mg (2 x 300 mg) PO TID dental 11/20/21 infection 10 days #60 caps ibuprofen 800 mg tablet 800 mg PO Q8H PRN pain #14 tabs 11/20/21 oxycodone 5 mg tablet 5 mg PO Q6H PRN pain #14 tabs 11/20/21 Allergies Allergy/AdvReac Type Severity Reaction Status Date / Time Penicillins Allergy Mild RASH/VOMITI Verified 03/05/24 18:49 NG Review of Systems Review of Systems: Yes all other systems are reviewed and are negative Constitutional: Constitutional: Reports as per [facility] Past Medical History Medical History Bleeding hemorrhoids Hyperlipidemia Rectal fistula Surgical History History of rectal surgery Family History Family History Father Bone cancer Mother Liver cancer Social History Social History Household Members: Family Housing: House Do you presently have visiting nurse or other home services: No Alcohol intake: never Advance Directives: No Advance Directives Information Provided: No Advance Directives Date on File: 02/16/21 service: No Current occupational status: retired Physical Exam ED Vital Signs: Vital Signs - 24 hr 03/05/24 18:43 03/05/24 19:03 Temperature 97.3 F 97.3 F Pulse Rate 82 82 Respiratory Rate 18 18 Blood Pressure 110/84 110/84 Pulse Oximetry 96 96 Oxygen Delivery Method Room Air Room Air BMI result Body Mass Index 30.6 Const General: cooperative, comfortable and no acute distress Orientation/consciousness: patient oriented x3 Limitations: no limitations HENAR Head: Yes normal to inspection, Yes normocephalic and Yes atraumatic Ears: hearing grossly normal bilaterally General nose exam: Normal external nose present Face and sinus: Yes normal facial exam Mouth: Normal oral and palatal mucosa present, oropharynx normal and moist mucous membranes Throat: Yes posterior oropharynx normal Eyes General: appearance normal, both eyes and all related structures Eyelids: Yes eyelids normal Conjunctivae: conjunctivae normal Sclerae: sclerae normal Pupils: Equal, round and reactive pupils present EOM: EOMs intact bilaterally Neck Neck: Yes normal visual inspection, Yes full ROM and Yes no lymphadenopathy Lymphatic: no lymphadenopathy noted Chest Chest palpation & inspection: normal inspection of the chest Resp Effort & Inspection: normal respiratory effort and able to speak in complete sentences Auscultation: clear to auscultation bilaterally, no crackles, no rales, no rhonchi and no wheezes Cardio Rate: regular rate Rhythm: regular rhythm Heart sounds: S1 normal heart sound present and S2 normal heart sound present GI Inspection: Yes normal to inspection Skin General skin exam: no rashes or lesions noted Trauma: no lacerations or abrasions Wounds: no wounds Neuro General: patient oriented x3 and moves all extremities Cranial nerves: Yes CN's II-XII intact bilaterally and Yes Equal, round and reactive pupils present Cognition (Neuro): normal cognition Gait exam (Neuro): Normal gait present Motor exam (neuro): 5/5 motor strength present throughout Extrem General: Yes normal to inspection Right upper extremity: normal to inspection Left upper extremity: normal to inspection Right lower extremity: normal to inspection Left lower extremity: normal to inspection Medical Decision Making Medical Decision Making MDM Narrative: This is a 60-year-old male, with a history of hyperlipidemia, who presents emergency department due to concerns for elevated blood pressure. He states that he took his blood pressure at home at 118/80. He states that he is feeling well and is completely asymptomatic. He is alert and oriented x4. No headaches, dizziness, chest pain, shortness on breath. Blood pressure 110/84, I discussed with patient that this is a normal blood pressure especially if he is feeling well. He understands and agrees with following up with PCP. There has no indication for doing any diagnostic imaging as well as labs are urine as he is completely asymptomatic. Patient given return precautions. He understands and agrees with plan. Patient stable for discharge. Differential Diagnosis Differential Diagnoses: The differential diagnosis associated with the presentation includes Headache, hypertension, anxiety, wellness visit Admission/Observation Consideration of admission/observation: Escalation of care including admission/observation considered Lab Data [facility] Lab Attestation statement: I reviewed the patient's lab results. Radiology Impression Discussion of test interpretation with radiology: I have reviewed the radiologist's reading. External Record Review External record reviewed: Inpatient record, Office record, Outpatient record, Prior outpatient labs, Prior outpatient radiology, Primary care record and Outside ED record Discharge Plan Discharge Clinical Impression: Encounter for wellness examination in adult Patient Disposition: Home, Self-Care Instructions: Hypertension (ED), Normal Exam (ED) Additional Instructions: Your seen in the emergency department due to concerns for high blood pressure. Your blood pressure today is normal. Continue taking all at-home medications as prescribed. Follow-up with your primary care physician. If any new or worsening symptoms occur including but not limited to chest pain, shortness of breath, blurred vision, headache, please return for re-evaluation. Prescriptions: No Action loratadine 10 mg tablet 10 mg PO DAILY PRN (Reason: allergies) ciprofloxacin HCl 500 mg tablet 500 mg PO Q12H Qty: 20 0RF metronidazole [Flagyl] 500 mg tablet 500 mg PO TID Qty: 30 0RF oxycodone 5 mg capsule 5 mg PO Q6H PRN (Reason: pain) Qty: 10 0RF clindamycin HCl 300 mg capsule 600 mg PO TID 10 Days Qty: 60 0RF oxycodone 5 mg tablet 5 mg PO Q6H PRN (Reason: pain) Qty: 14 0RF ibuprofen 800 mg tablet 800 mg PO Q8H PRN (Reason: pain) Qty: 14 0RF Interventions: ED Discharge Assessment Last Done: 03/05/24 19:03 Discharge Date/Time: 03/05/24 19:04 Print Language: Slovenian
[2024-03-05 19:03] VITALS: BP 110/84; PULSE 82; RESP 18; TEMP 36.3; O2SAT 96
== END 2024-03-05 19:04 | disposition home or self-care (01) ==
PROVIDERS: Emergency Provider Emergency Medicine Emergency Medical Services; PCP Nurse Practitioner Primary Care
DX: Z03.89 Encounter for observation for other suspected diseases and conditions ruled out (principal)
CPT/HCPCS: 99282

== ENCOUNTER 2024-04-16 14:04 | Outpatient (REF) | payer OTHER, SELFPAY ==
[2024-04-16 16:19] LABS: Estimated Average Glucose 114 mg/dL; Hemoglobin A1C 152.3439 umol/L; Hemoglobin A1c % 5.6 % (<6.0)
[2024-04-16 16:42] LABS: Alanine Aminotransferase 19 U/L (0-40); Albumin Level 4.2 g/dL (3.5-5.0); Alkaline Phosphatase 84 U/L (39-117); Anion Gap 12 (12-20); Aspartate Amino Transferase 23 U/L (5-37); Blood Urea Nitrogen 9 mg/dL (9-16); Calcium 9.8 mg/dL (8.4-10.2); Carbon Dioxide 25 mmol/L (22-29); Chloride 105 mmol/L (96-108); Cholesterol 232 mg/dL (<200); Estimated Glomerular Filt Rate > 60; Glucose Random 81 mg/dL (60-115); HDL Cholesterol 34 mg/dL (>40); LDL Cholesterol Calculated 152 mg/dL (<100); Potassium 4.1 mmol/L (3.3-5.1); Sodium 138 mmol/L (135-145); Total Protein 7.6 g/dL (6.5-8.0); Triglycerides 233 mg/dL (<150)
== END 2024-04-16 14:05 | disposition home or self-care (01) ==
LOC: HO.HHCL 14:04
PROVIDERS: Visit Provider Nurse Practitioner Primary Care
DX: E78.5 Hyperlipidemia, unspecified (principal)
CPT/HCPCS: 36415; 80053; 80061; 83036

== ENCOUNTER 2024-06-21 11:41 | Emergency (ER) | payer OTHER, SELFPAY ==
--- NOTE | ~2024-06-21 | XR_ITS ---
EXAMINATION: XR RIBS, LEFT CLINICAL INFORMATION: Pain. COMPARISON: 10/10/2023 TECHNIQUE: 3 views of the left ribs were obtained. FINDINGS: Lungs are clear the hyperexpanded. Biapical pleural thickening as well as pleural thickening and adjacent to the left lateral eighth and ninth ribs. No consolidation, pneumothorax, or pleural effusion. The cardiomediastinal silhouette and pulmonary vasculature are normal. Ribs appear intact. No acute fractures are identified. Cortical irregularity at the lateral aspect of the ninth rib is unchanged dating back to 2020. XR/XR ribs LT min 3V w CXR1V IMPRESSION: 1. No acute pulmonary findings. 2. No acute rib fractures.
--- NOTE | 2024-06-21 11:51 | ED.GENADULT ---
HPI - General Adult General Chief complaint: Back Pain/Injury Stated complaint: rib and back pain Time Seen by Provider: 06/21/24 12:07 Source: patient Mode of arrival: ambulatory Limitations: no limitations History of Present Illness HPI narrative: Patient is a 68-year-old male who presents emergency department for evaluation of left lateral rib pain. He reports onset 5 days ago with progressive worsening. Pain has been constant in nature. It is now radiating more posteriorly towards his spine. He denies any recent precipitating injury trauma, no recent URI symptoms. He took Advil once yesterday with minimal relief. Pain is made worse with movement. He denies associated fevers, chills, cough, anterior chest pain, shortness of breath, nausea, vomiting, abdominal pain, lower back pain, genitourinary symptoms. Related Data Home Medications ?Medication ?Instructions ?Recorded ?Confirmed loratadine 10 mg tablet 10 mg PO DAILY PRN allergies 02/16/21 03/09/23 Previous Rx's ?Medication ?Instructions ?Recorded ciprofloxacin HCl 500 mg tablet 500 mg PO Q12H #20 tabs 02/17/21 metronidazole 500 mg tablet 500 mg PO TID #30 tabs 02/17/21 (Flagyl) oxycodone 5 mg capsule 5 mg PO Q6H PRN pain #10 caps 02/17/21 clindamycin HCl 300 mg capsule 600 mg (2 x 300 mg) PO TID dental 11/20/21 infection 10 days #60 caps ibuprofen 800 mg tablet 800 mg PO Q8H PRN pain #14 tabs 11/20/21 oxycodone 5 mg tablet 5 mg PO Q6H PRN pain #14 tabs 11/20/21 cyclobenzaprine 5 mg tablet 5 mg PO TID PRN muscle spasm #14 06/21/24 tabs Allergies Allergy/AdvReac Type Severity Reaction Status Date / Time Penicillins Allergy Mild RASH/VOMITI Verified 06/21/24 12:03 NG Review of Systems Review of Systems: Yes all other systems are reviewed and are negative PMFSH Past Medical History Attestation statement: The following information was validated with the patient. Source: old records reviewed Medical History Bleeding hemorrhoids Hyperlipidemia Rectal fistula Surgical History History of rectal surgery Family History Family History Father Bone cancer Mother Liver cancer Social History Social History Household Members: Family Housing: House Do you presently have visiting nurse or other home services: No Alcohol intake: never Advance Directives: No Advance Directives Information Provided: Yes Advance Directives Date on File: 02/16/21 Do you have a plan to hurt others: No Plan service: No Current occupational status: retired Physical Exam ED Vital Signs: Vital Signs - 24 hr 06/21/24 11:57 Temperature 98.4 F Pulse Rate 78 Respiratory Rate 18 Blood Pressure 115/79 Pulse Oximetry 98 Oxygen Delivery Method Room Air BMI result Body Mass Index 29.8 Appearance: Alert.?Oriented to person, place and time. No acute distress.?Normal affect. Eyes: Pupils equal, round and reactive to light.? ENT: Pharynx normal.?? Neck: Normal inspection.? Neck supple.?? CVS: Heart sounds normal. Normal heart rate and rhythm.? Pulses normal.?? Respiratory: No respiratory distress.? Lung sounds clear to auscultation bilaterally. Has pain upon palpation of the left lateral lower ribs. No crepitus. No deformity. Abdomen: Soft and non-tender. Normoactive bowel sounds. No CVA tenderness? Skin: Skin warm and dry.? Normal skin color.? Extremities: No lower extremity edema.? No calf ttp? Neuro: Moves all extremities spontaneously. Sensation intact bilaterally. Ambulates with normal steady gait. Course Course Course Narrative: This is an RME: Additional HPI, ROS, PE not included below will be deferred to primary provider. RME assessment and note performed by: Carmen Ro PA-C This is a [id number]-male, with no reported medical problems, who presents to the ER with a complaint of back pain and BL rib pain x 5 days. No known injury or trauma. Has been taking advil with minimal relief. He had an accident 8 years ago. Pain started initially in his ribs now radiating into his spine. No CP/SOB. Plan: Xr ribs/chest Medications Administered Discontinued Medications Generic Name Dose Route Start Last Admin Trade Name Freq PRN Reason Stop Dose Admin Cyclobenzaprine HCl 5 mg 06/21/24 12:39 06/21/24 13:01 Cyclobenzaprine Hcl 5 Mg Tablet PO 06/21/24 12:40 5 mg ONCE ONE Administration Medical Decision Making Medical Decision Making [facility] Narrative: Patient is a 68-year-old male with past medical history of proctitis, hyperlipidemia who presents to the emergency department for left lateral chest pain as per HPI. Has discomfort upon palpation of the area of the chest that exacerbates with movement. He has no associated URI symptoms, genitourinary symptoms, or gastrointestinal symptoms. He has had no recent injury to suggest a fracture. History and physical examination are without concern for DVT, Wells score is negative I suspect this is unlikely pulmonary embolism. Less consistent with ACS however EKG was obtained no acute ischemic abnormalities, has a mild sinus bradycardia with ventricular rate of 57, QTC 439, no ST elevation, no ST depression.. XR was obtained to evaluate for rib abnormality, effusion, infiltrate/consolidation, no acute pathology is found. Urinalysis to evaluate for infection and/or hematuria, and this was negative. I also discussed with patient possible prodrome pain with herpes zoster, he has been vaccinated for shingles and he feels this is unlikely the cause of his pain. I suspect there is a muscular etiology for his pain given his exquisite tenderness upon light palpation and movement, he received cyclobenzaprine in the emergency department with good relief of his pain. I will send a short prescription to his pharmacy, and have advised that he follow-up closely with his primary care doctor for persistent symptoms. Differential Diagnosis Differential Diagnoses: The differential diagnosis associated with the presentation includes (See narrative above) Admission/Observation Consideration of admission/observation: Escalation of care including admission/observation considered Lab Data [facility] Lab Attestation statement: I reviewed the patient's lab results. (See narrative above) Labs: Lab Results 06/21/24 Range/Units 14:39 Urine Color Yellow Urine Appearance Clear Urine pH 5.5 (5.0-9.0) Ur Specific [place] 1.010 (1.005-1.025) Urine Protein Negative (Neg-Trace) mg/dL Urine Glucose (UA) Negative (Negative) mg/dL Urine Ketones Negative (Negative) mg/dL Urine Blood Negative (Negative) Urine Nitrite Negative (Negative) Ur Leukocyte Esterase Negative (Negative) Independent Interpretation I performed an independent interpretation of an: EKG (See narrative above) and Plain X-Ray (See narrative above) Radiology Impression Discussion of test interpretation with radiology: I have reviewed the radiologist's reading. Radiologist Impression: XR/XR ribs LT min 3V w CXR1V IMPRESSION: 1. No acute pulmonary findings. 2. No acute rib fractures. External Record Review External record reviewed: Outpatient record Prescription Management I considered prescription management with: Pain Medication (See narrative above) Discharge Plan Discharge Clinical Impression: Rib pain on left side Patient Disposition: Home, Self-Care Additional Instructions: A prescription for cyclobenzaprine was sent to your pharmacy. This medication is a muscle relaxer. You may make you drowsy. You should not drive, drink alcohol, or work while taking this medication. As discussed, your chest x-ray today was normal, your EKG was without concerning findings, your urine test did not show any evidence of infection or blood in the urine. Please follow-up with your primary care doctor. Prescriptions: New cyclobenzaprine 5 mg tablet 5 mg PO TID PRN (Reason: muscle spasm) Qty: 14 0RF No Action loratadine 10 mg tablet 10 mg PO DAILY PRN (Reason: allergies) ciprofloxacin HCl 500 mg tablet 500 mg PO Q12H Qty: 20 0RF metronidazole [Flagyl] 500 mg tablet 500 mg PO TID Qty: 30 0RF oxycodone 5 mg capsule 5 mg PO Q6H PRN (Reason: pain) Qty: 10 0RF clindamycin HCl 300 mg capsule 600 mg PO TID 10 Days Qty: 60 0RF oxycodone 5 mg tablet 5 mg PO Q6H PRN (Reason: pain) Qty: 14 0RF ibuprofen 800 mg tablet 800 mg PO Q8H PRN (Reason: pain) Qty: 14 0RF Referrals: Therese Caro, [employer] [Primary Care Provider] - Print Language: B[place]udian
[2024-06-21 11:57] VITALS: BP 115/79; PULSE 78; RESP 18; TEMP 36.9; O2SAT 98; BMI 29.8
[2024-06-21] MEDS: Cyclobenzaprine HCl 5 MG TABLET PO (13:01)
--- NOTE | 2024-06-21 13:30 | ECG_ITS ---
Test Reason : L LATERAL CP Blood Pressure : / mmHG Vent. Rate : 057 BPM Atrial Rate : 057 BPM P-R Int : 186 ms QRS Dur : 092 ms QT Int : 402 ms P-R-T Axes : 064 043 054 degrees QTc Int : 391 ms Sinus bradycardia Otherwise normal ECG When compared with ECG of 20-NOV-2021 14:33, No significant change was found Referred By: Emily Michael Electronically Signed By:LORY BRUCE MD
[2024-06-21 14:50] LABS: Appearance Urine Clear; Color Urine Yellow; Glucose Urine UA Negative (Negative); Leukocyte Esterase Urine Negative (Negative); Nitrite Urine Negative (Negative); PH 5.5 (5.0-9.0); Urine Blood Negative (Negative); Urine Ketones Negative (Negative); Urine Protein Negative (Neg-Trace)
[2024-06-21 15:17] VITALS: BP 115/79; PULSE 78; RESP 18; TEMP 36.9; O2SAT 98
== END 2024-06-21 15:17 | disposition home or self-care (01) ==
PROVIDERS: Nurse Practitioner Family; Emergency Provider Student in an Organized Health Care Education/Training Program; PCP Nurse Practitioner Primary Care
DX: R07.81 Pleurodynia (principal); E78.5 Hyperlipidemia, unspecified
CPT/HCPCS: 71101; 81003; 93005; 99283; 99284

== ENCOUNTER → 2024-06-21 13:30 | Outpatient (BNV) | payer OTHER, SELFPAY | PROVIDERS: Emergency Provider Student in an Organized Health Care Education/Training Program; PCP Nurse Practitioner Primary Care; Visit Provider Internal Medicine Cardiovascular Disease | DX: R00.1 Bradycardia, unspecified (principal) | CPT/HCPCS: 93010 ==

== ENCOUNTER 2024-07-02 12:52 | Outpatient (REF) | payer OTHER, SELFPAY ==
[2024-07-03 07:57] LABS: HIV AB/AG Nonreactive (Nonreactive); HIV Num 1 0.05 S/CO (0.00-0.99); ~HepC Num1 2.11 S/CO (0.00-0.79); ~Hepatitis C Antibody Reactive (Nonreactive)
[2024-07-04 08:43] LABS: RPR Rapid Plasma Reagin NON-REACTIVE (NON-REACTIVE)
[2024-07-05 10:28] LABS: HCV Log PCR <1.18 NOT DETECTED Log IU/mL (NOT DETECTED); HepC Viral Load <15 NOT DETECTED IU/mL (NOT DETECTED)
[2024-07-05 17:12] LABS: TS Negative Control Passed; TS Panel A 0; TS Panel B 0; TS Positive Control Passed; TSpotTB Negative (Negative)
== END 2024-07-02 12:53 | disposition home or self-care (01) ==
LOC: HO.HHCL 12:52
PROVIDERS: Visit Provider Nurse Practitioner Primary Care
DX: Z11.1 Encounter for screening for respiratory tuberculosis (principal); Z11.4 Encounter for screening for human immunodeficiency virus [HIV]; Z20.2 Contact with and (suspected) exposure to infections with a predominantly sexual mode of transmission
CPT/HCPCS: 36415; 86481; 86592; 86803; 87389; 87522

== ENCOUNTER 2024-11-25 09:10 | Outpatient (REF) | payer OTHER, SELFPAY ==
[2024-11-25 11:40] LABS: Alanine Aminotransferase 23 U/L (0-40); Albumin Level 3.9 g/dL (3.5-5.0); Alkaline Phosphatase 88 U/L (39-117); Aspartate Amino Transferase 33 U/L (5-37); Bilirubin Direct 0.1 mg/dL (0.0-0.5); Bilirubin Total 0.5 mg/dL (0.0-1.0); Cholesterol 230 mg/dL (<200); HDL Cholesterol 33 mg/dL (>40); LDL Cholesterol Calculated 133 mg/dL (<100); Total Protein 7.2 g/dL (6.5-8.0); Triglycerides 322 mg/dL (<150)
[2024-11-25 11:51] LABS: HIV AB/AG Nonreactive (Nonreactive); HIV Num 1 0.05 S/CO (0.00-0.99)
[2024-11-27 16:08] LABS: RPR Rapid Plasma Reagin NON-REACTIVE (NON-REACTIVE)
== END 2024-11-25 09:11 | disposition home or self-care (01) ==
LOC: HO.HHCL 09:10
PROVIDERS: Visit Provider Nurse Practitioner Primary Care
DX: E78.5 Hyperlipidemia, unspecified (principal); Z11.3 Encounter for screening for infections with a predominantly sexual mode of transmission
CPT/HCPCS: 36415; 80061; 80076; 86592; 87389

== ENCOUNTER 2025-03-31 09:12 | Outpatient (REF) | payer OTHER, SELFPAY ==
--- NOTE | ~2025-03-31 | XR_ITS ---
EXAMINATION: XR CERVICAL SPINE CLINICAL INFORMATION: PAIN COMPARISON: February 13, 2008 is not available on PACS. TECHNIQUE: 3 views of the cervical spine were obtained. FINDINGS: Craniocervical junction is intact with normal alignment. Multilevel marginal osteophyte formation and endplate sclerosis decreased intervertebral disc height C4-5 C7-T1 levels. Grade 1 anterolisthesis C5-6. Grade 1 retrolisthesis C6-7. Small rudimentary rib on the right of C7. Upper airways patent. No lytic or blastic lesions. XR/XR cervical spine 3V IMPRESSION: Multilevel cervical spondylosis C4-5 C7-T1 resulting in grade 1 anterolisthesis C5-6 and grade 1 retrolisthesis C6-7. Electronically signed by: Brett Parr MD 03/31/2025 09:53 AM EDT
--- NOTE | ~2025-03-31 | XR_ITS ---
EXAMINATION: XR SHOULDER, LEFT CLINICAL INFORMATION: Left shoulder pain x 8 days. COMPARISON: Chest x-ray dated November 16, 2006 is not available on PACS. TECHNIQUE: AP external rotation, Grashey, scapular Y, and axillary views of the left shoulder. FINDINGS: Mild sclerosis along the articular surface of the acromioclavicular joint. No acute cortical disruption or malalignment. No lytic or blastic lesions. XR/XR shoulder LT min 2V IMPRESSION: Mild to moderate degenerative changes, left acromioclavicular joint. Electronically signed by: Brett Parr MD 03/31/2025 09:54 AM EDT
--- OUTSIDE RECORDS SUMMARY | 2025-03-31 09:24 | XMS_ITS | Clinical Summary ---
Author Organization [email or web address] Address [address] [facility] 7t [place] [address] Care Team Providers Care Interventional Nurse Name Role Phone Therese Caro Primary Care Provider [phone] Allergies Active Allergy Reactions Criticality Noted Date Comments Penicillins Hives 12/06/2010 Medications nicotine (Nicoderm, Step 1) 21 MG/24HR patchIndicatio ns:Nicotine Dependence Place 1 patch on the skin 1 (one) time each day at the same time for 14 days. 14 patch 3 Active nicotine (Nicoderm CQ) 7 MG/24HR patch Place 1 patch on the skin 1 (one) time each day at the same time. 42 patch 1 4 Active triamcinolone (Kenalog) 0.1 % creamIndicatio ns:Rash Apply topically 2 times daily. To rash 45 g 5 Active Aspirin Low Dose 81 MG EC tabletIndicati ons:Cardiovasc ular event risk 1 tablet daily by mouth 90 tablet 3 5 Active atorvastatin (Lipitor) 20 MG tabletIndicati ons:Dyslipidem ia Take 1 tablet (20 mg) by mouth at bedtime. 90 tablet 3 5 Active acetaminophen (Tylenol) 500 MG tabletIndicati ons:Low back pain at multiple sites 1-2 tabs as needed every 8 hours as needed for pain 120 tablet 1 5 Active fluticasone (Flonase Allergy Relief) 50 MCG/ACT nasal sprayIndicatio ns:Seasonal allergic rhinitis due to other allergic trigger Administer 1 spray into each nostril Once per day. Shake gently. Before first use, prime pump. After use, clean tip and replace cap. 16 g 1 5 11/21/19 26 Active celecoxib (CeleBREX) 200 MG capsuleIndicat ions:Acute pain of left shoulder Take 1 capsule (200 mg) by mouth 2 times daily. 40 capsule 5 04/30/20 25 Active celecoxib (CeleBREX) 200 MG capsuleIndicat ions:Acute pain of left shoulder Take 1 capsule (200 mg) by mouth 2 times daily. 60 capsule 5 03/31/20 25 Discontinu ed(Other) Active Problems Problem Noted Date Diagnosed Date Ill-fitting dentures 12/20/2024 Partially edentulous maxilla 06/05/2024 Partial edentulism 05/08/2024 Closed fracture of tooth 11/24/2023 Localized gingival recession 10/31/2023 Dental calculus 10/31/2023 Periodontal disease 02/08/2023 Dental caries 01/05/2023 Degeneration of lumbar intervertebral disc 07/10 Dyslipidemia 08/19/2015 History of drug abuse 08/19/2015 Psychotic disorder 08/19/2015 Tobacco dependence syndrome 08/19/2015 Tubular adenoma 08/19/2015 Encounters Date Type Department Care Team Description 03/31/2025 8:40 AM EDT Office Visit [facility] [address] [place] [address] Tonya Moreno MD Acute pain of left shoulder (Primary Dx) 02/18/2025 Telephone [facility] [address] [place], [place] [phone] Therese Caro ANP May recall from Last 3 Months Immunizations Immunization Administration Dates Next Due Influenza High-dose Quadriva lent Preservative Free 07/26/2022 Influenza Injectable Quadriv alant Preservative Free IIV4 MDCK 09/14/2020 Influenza injectable quadriv alent IIV4 with preservative 08/17/2016,08/06/2015 Influenza injectable quadriv alent preservative free 11/21/2019,09/06/2017 Influenza, High Dose Seasona l, Preservative Free 11/21/2024 Influenza, IIV3, injectable 07/28/2014, 0 Moderna Covid-19 Vaccine 12+ 10/12/2021,03/15/20 21,02/15/2021 Pfizer Covid-19 Vaccine 12+ 11/21/2024 Pneumococcal Conjugate PCV 13 04/01/2021 Pneumococcal Conjugate PCV 20 11/21/2024 Pneumococcal Polysaccharide PPSV23 07/26/2022 Tdap 05/11/2017 Zoster, Recombinant 01/02/2024,10/17/2023 Zoster, live 09/06/2017 Family History Medical History Relation Name Comments Cancer Brother lung Relation Name Status Comments Brother Social History Tobacco Use Types Packs/Day Years Used Date Smoking Tobacco: Every Day Cigarettes Passive Smoke Exposure: Never Smokeless Tobacco: Never Tobacco Cessation:Ready to Q uit: Not Asked; Counseling Given: Not Answered Alcohol Use Standard Drinks/Week Comments Not Currently 0 (1 standard drink = 0.6 oz pur e alcohol) Housing Stability Answer Date Recorded What is your housing situation today? I have karuna hurtado 01/30/[address] you li ve. Do you have problems with any of the following? None of the above 01/30/2024 Food Insecurity Answer Date Recorded Within the past 12 months, y ou worried that your food would run out before you got money to buy more: Never True 01/30/2024 Within the past 12 months,th e food you bought just didn't last and you didn't have enough money to get more: Never True Transportation Answer Date Recorded In the past 12 months, has l ack of transportation kept you from medical appts, meetings, work or from getting things needed for daily living? No 01/30/2024 Utilities Answer Date Recorded In the past 12 months, has t he electric, gas, oil or water company threatened to shut off services in your home? No 01/30/2024 Depression Answer Date Recorded Patient Health Questionnaire-2 Score 0 04/16/2024 Internet Access Answer Date Recorded Internet Access Q1 Yes 11/12/2024 Internet Access Q2 Not on file 11/12/2024 Sex and Gender Information Value Date Recorded Sex Assigned at Male 09/12/2022 10:16 AM EDT Legal Sex Male 10:16 AM EDT Gender Identity Male 09/12/2022 10:16 AM EDT Sexual Orientation Straight 09/12/2022 10 :16 AM EDT Last Filed Vital Signs Vital Sign Reading Time Taken Comments Blood Pressure 138/85 03/31/2025 8:42 AM EDT Pulse 64 03/31/2025 8:42 AM EDT Temperature 36.7 ??C (98 ??F) 03/31/2025 8:42 AM EDT Respiratory Rate 16 03/31/2025 8:42 AM EDT Oxygen Saturation 97% 11/21/2024 9:56 AM EST Inhaled Oxygen Concentration - - Weight 93 kg (205 lb) 03/31/2025 8:42 AM EDT Height 172.7 cm (5' 8 ) 03/31/2025 8:42 AM EDT Body Mass Index 31.17 03/31/2025 8:42 AM EDT Plan of Treatment Upcoming Encounters Date Type Department Care Team (Late st Contact Info) Description 06/03/2025 9:15 AM EDT Office Visit [facility] [address] [place] [address] Therese Caro ANP [address] [place] [address] 07/02/2025 8:00 AM EDT Office Visit [facility] [address] [place] [address] Monse, Vivienne [address] [place] [address] Health Maintenance Due Date Last Done Comments CT Colonography 1955 FIT DNA/Cologuard 1955 FIT 1955 FOBT 1955 Sigmoidoscopy 1955 Alcohol/Substance Use Screening 1967 Dental Oral Exam 11/08/2024 05/08/2024, 01/05/2023 Dental Prophylaxis 11/08/2024 05/08/2024, 1 01/01/2023, 01/05/2023 SDOH Screening 01/29/2025 01/30/2024 Depression Screening 04/16/2025 04/16/2024, 04/16/20 Dental X-Ray: Bitewings 05/09/2025 05/08/2024, 01/05 COVID-19 Vaccine ( season) 2025 11/21/2024, 10/12/2021, 03/15/2021, Additional history exists Colonoscopy 10/14/2025 10/14/2015 Colorectal Cancer Screening 10/14/2025 Tobacco Screening 03/31/2026 03/31/2025 Dental X-Ray: Full Mouth 05/09/2027 05/08/2024, 01/2021 DTaP/Tdap/Td Vaccines (2 - Td or Tdap) 05/11/2027 05/11/2017 Lipid Panel 11/25/2029 11/25/2024, 02/2024, 02/09/2022, Additional history exists RSV Patients and Patients Aged 60 years or older (1 - 1-dose 75+ series) 2030 Zoster Vaccines Completed 01/02/2024, 03/2023, 09/06/2017 Hepatitis C Screening Completed 07/02/2024, 024 Influenza Vaccine Completed 11/21/2024, , 09/14/2020, Additional history exists Pneumococcal Vaccine: 50+ Years Completed 11/21/2024, 07/26/2022, 04/01/2021 HIB Vaccines Aged Out No longer eligi ble based on patient's age to complete this topic HPV Vaccines Aged Out No longer eligi ble based on patient's age to complete this topic Hepatitis A Vaccines Aged Out No long er eligible based on patient's age to complete this topic Hepatitis B Vaccines Aged Out No long er eligible based on patient's age to complete this topic IPV Vaccines Aged Out No longer eligi ble based on patient's age to complete this topic Meningococcal B Vaccine Aged Out No l onger eligible based on patient's age to complete this topic Meningococcal Vaccine Aged Out No bernadette chong eligible based on patient's age to complete this topic RSV under 20 months Aged Out No longe r eligible based on patient's age to complete this topic Rotavirus Vaccines Aged Out No longer eligible based on patient's age to complete this topic Procedures Procedure Name Priority Date/Time Associated Diagnosis Comments LIPID PANEL, STANDARD Routine 11/25/2024 9:15 AM EST Dyslipidemia HEPATITIS C AB W/REFL TO HCV RNA, QN, PCR Routine 07/02/2024 12:54 PM EDT Routine screening for STI (sexually transmitted infection) PROPHYLAXIS - ADULT Routine 05/08/2024 3 :00 PM EDT Dental calculus INTRAORAL - COMPLETE SERIES OF RADIOGRAPHIC IMAGES Routine 05/08/2024 3:00 PM EDT Missing teeth, acquired Dental calculus Localized gingival recession Dental caries PERIODIC ORAL EVALUATION - ESTABLISHED PATIENT Routine 05/08/2024 3:00 PM EDT HM COLONOSCOPY Routine 10/14/2015 from Last 3 Months or Most Recently Relevant to Health Maintenance Results * (ABNORMAL) Lipid Panel, Standard (11/25/2024 9:15 AM EST) Triglycerides 322(H) <150 mg/dL [facility] Comment:Desirable Triglyceri de: less than 150 mg/dLBorderline High Triglyceride 150-199 mg/dLHigh Triglyceride: 200-499 mg/dLVery High Triglyceride: greater than or equal to 5OO mg/dL Cholesterol 230(H) <200 mg/dL [facility] Comment:Desirable Cholestero l: less than 200 mg/dLBorderline High Cholesterol: 200-239 mg/dLHigh Cholesterol: greater than 239 mg/dL LDL Cholesterol Calculated 133(H) <100 mg/dL [facility] Comment:Desirable LDL: less than 100 mg/dLNear Optimal/Above Optimal LDL: 110- 129 mg/dLBorderline High LDL: 130-159 mg/dLHigh LDL: 160-189 mg/dLVery High LDL: greater than or equal to 190 mg/dL HDL Cholesterol 33(L) >40 mg/dL [facility] Comment:Desirable HDL: great er than 40 mg/dL Note: This HDL assay may give artificially low results in patients with liver disease. Blood Venous blood specimen / Unknown 11/25/2024 9:15 AM EST 11/25/2024 11:18 AM EST Therese [facility] BLOOD ORDERABLES Final Resul t [facility] [address] [place], [place] [phone] * (ABNORMAL) Hepatitis C Antibody with Reflex to HCV, RNA, Quantitative, Real- Time PCR (07/02/2024 12:54 PM EDT) Hepatitis C Antibody Reactive( A) Nonreactive [facility] Comment:Presumptive evidence of antibodies to HCV. Blood Venous blood specimen / Unknown 07/02/2024 12:54 PM EDT 07/02/2024 1:33 PM EDT [facility] BLOOD ORDERABLES Final Resul t [facility] [address] [place] [address] [phone] * Colonoscopy (10/14/2015) Colonoscopy Normal Normal Historical Provider MD HEALTH MAINTENANCE Final Result from Last 3 Months or Most Recently Relevant to Health Maintenance Insurance [address] [facility] [address] [id number] [facility] Care Teams Interventional Nurse Relationship Specialty Start Date End Date Therese Caro ANP [address] [place] [address] PCP - General Family Medicine 07/13/20
--- OUTSIDE RECORDS SUMMARY | 2025-03-31 09:24 | XMS_ITS | Encounter Summary ---
Author Organization [employer] Address [address] [facility] 7t [place] [address] Care Team Providers Care Furnace Roaster Name Role Phone Therese Caro Primary Care Provider Encounter Details Date Type Department Care Team (Latest Contact Info) Description 01/13/2021 Abstract [facility] Dental, Provider, DDS Social History Tobacco Use Types Packs/Day Years Used Date Smoking Tobacco: Never Assessed Sex and Gender Information Value Date Recorded Sex Assigned at Male 09/12/2022 10:16 AM EDT Legal Sex Male 10:16 AM EDT Gender Identity Male 09/12/2022 10:16 AM EDT Sexual Orientation Straight 09/12/2022 10 :16 AM EDT documented as of this encounter Plan of Treatment Upcoming Encounters Date Type Department Care Team (Late st Contact Info) Description 06/03/2025 9:15 AM EDT Office Visit [facility] [address] [place] [address] Therese Caro ANP [address] [place] [address] 07/02/2025 8:00 AM EDT Office Visit [facility] [address] [place] [address] Monse, Vivienne [address] [place] [address] documented as of this encounter Visit Diagnoses Not on filedocumented in this encounter Care Teams Furnace Roaster Relationship Specialty Start Date End Date Therese Caro ANP [address] [place] [address] PCP - General Family Medicine 07/13/20 documented as of this encounter
--- OUTSIDE RECORDS SUMMARY | 2025-03-31 09:24 | XMS_ITS | Encounter Summary ---
Author Organization [employer] Address [address] [facility] [address] 7[address] [place] [address] Care Team Providers Care Jewelry Bench Worker Name Role Phone Therese Caro SANTI Primary Care Provider [phone] Reason for Visit * Reason Comments Shoulder Pain Encounter Details Date Type Department Care Team ([facility] st Contact Info) Description 03/31/2025 8:40 AM EDT Office Visit [facility] [address] [place] [address] Tonya Moreno MD [address] [place] [address] Acute pain of left shoulder (Primary Dx) Social History Tobacco Use Types Packs/Day Years Used Date Smoking Tobacco: Every Day Cigarettes Passive Smoke Exposure: Never Smokeless Tobacco: Never Alcohol Use Standard Drinks/Week Comments Not Currently 0 (1 standard drink = 0.6 oz pur e alcohol) Housing Stability Answer Date Recorded What is your housing situation today? I have karuna genesis 01/30/[address] you li [...] the past 12 months, has t he [employer], gas, oil or water [employer] threatened to shut off services in your [...] AM EDT documented as of this encounter Last Filed Vital Signs Vital Sign Reading Time Taken Comments Blood Pressure 138/85 03/31/2025 8:42 AM EDT Pulse 64 03/31/2025 8:42 AM EDT Temperature 36.7 ??C (98 ??F) 03/31/2025 8:42 AM EDT Respiratory Rate 16 03/31/2025 8:42 AM EDT Oxygen Saturation - - Inhaled Oxygen Concentration - - Weight 93 kg (205 lb) 03/31/2025 8:42 AM EDT Height 172.7 cm (5' 8 ) 03/31/2025 8:42 AM EDT Body Mass Index 31.17 03/31/2025 8:42 AM EDT documented in this encounter Plan of Treatment Upcoming Encounters Date Type Department Care Team (Late st Contact Info) Description 06/03/2025 9:15 AM EDT Office Visit [facility] [address] [place] [address] Therese Caro ANP [address] [place] [address] 07/02/2025 8:00 AM EDT Office Visit [facility] [address] [place] [address] Vivienne Shea [address] [place] [address] Scheduled Orders Name Type Priority Associated Diagnoses Orde r Schedule XR Shoulder 2+ Views Left Imaging Routine Acute pain of left shoulder Expected: 03/31/2025, Expires: 03/31/2026 documented as of this encounter Visit Diagnoses Diagnosis Acute pain of left shoulder- Primary documented in this encounter Care Teams Jewelry Bench Worker Relationship Specialty Start Date End Date Therese Caro ANP [address] [place] [address] PCP - General Family Medicine 07/13/20 documented as of this encounter
--- OUTSIDE RECORDS SUMMARY | 2025-03-31 09:24 | XMS_ITS | Encounter Summary ---
Author Organization [employer] Address [address] [facility] 7t [place] [address] Care Team Providers Care House Wrecker Name Role Phone Therese Caro SANTI Primary Care Provider [phone] Reason for Visit * Reason Onset Date Comments temp crown fell off 09/11/2024 Encounter Details Date Type Department Care Team ([facility] st Contact Info) Description 09/11/[address] [facility] [address] [place] [address] Kelly Bernal DDS [address] [place] [address] temp crown fell off Social History Tobacco Use Types Packs/Day Years [...] t he electric, gas, oil or water [email or web address] threatened to shut off services in your home? No 01/30/2024 Depression Answer Date Recorded Patient Health Questionnaire-2 Score 0 04/16/2024 Sex and Gender Information Value Date Recorded Sex Assigned at Male 09/12/2022 10:16 AM EDT Legal Sex Male 10:16 AM EDT Gender Identity Male 09/12/2022 10:16 AM EDT Sexual Orientation Straight 09/12/2022 10 :16 AM EDT documented as of this encounter Miscellaneous Notes * Telephone Encounter - Disha Brower - 09/11/2024 2:40 PM EDT Message for Dr. Singh Patient called in to report temp crowns fell off. He has an appt on 09/25 for permanent crowns. Does provider need him to come in sooner for re cement or able to wait until 09/25. Please reach out topatient for scheduling and update. documented in this encounter Plan of Treatment Upcoming Encounters Date Type Department Care Team (Late st Contact Info) Description 06/03/2025 9:15 AM EDT Office Visit [facility] [address] [place] [address] Therese Caro ANP [address] [place] [address] 07/02/2025 8:00 AM EDT Office Visit [facility] [address] [place] [address] Monse, Vivienne [address] [place] [address] documented as of this encounter Visit Diagnoses Not on filedocumented in this encounter Care Teams House Wrecker Relationship Specialty Start Date End Date Therese Caro ANP [address] [place] [address] PCP - General Family Medicine 07/13/20 documented as of this encounter
--- OUTSIDE RECORDS SUMMARY | 2025-03-31 09:24 | XMS_ITS | Encounter Summary ---
Author Organization [employer] Address [address] [place] [address] 7 [place] [address] Care Team Providers Care Construction Project Mgr Name Role Phone Therese Caro Primary Care Provider [phone] Encounter Details Date Type Department Care Team (Latest Contact Info) Description 03/22/2019 Abstract [facility] Dental, Provider, DDS Social History [...] Description 06/03/2025 9:15 AM EDT Office Visit [facility] [address] [place] [address] Therese Caro ANP [address] [place] [address] 07/02/2025 8:00 AM EDT Office Visit [facility] [address] [place] [address] Monse, Vivienne [address] [place] [address] documented as of this encounter Visit Diagnoses Not on filedocumented in this encounter Care Teams Construction Project Mgr Relationship Specialty Start Date End Date Therese Caro ANP [address] [place] [address] PCP - General Family Medicine 07/13/20 documented as of this encounter
== END 2025-03-31 09:13 | disposition home or self-care (01) ==
LOC: HO.HHCX 09:12
PROVIDERS: Visit Provider Internal Medicine
DX: M25.512 Pain in left shoulder (principal); M54.2 Cervicalgia
CPT/HCPCS: 72040; 73030

== ENCOUNTER → 2025-03-31 09:12 | Outpatient (BNV) | payer OTHER, SELFPAY | PROVIDERS: Visit Provider Radiology Diagnostic Radiology | DX: M43.12 Spondylolisthesis, cervical region (principal); M25.512 Pain in left shoulder | CPT/HCPCS: 72040; 73030 ==

== ENCOUNTER 2025-09-17 07:06 | Outpatient (REF) | payer OTHER, SELFPAY ==
--- NOTE | ~2025-09-17 | CT_ITS ---
EXAMINATION: CT CHEST WITHOUT IV CONTRAST INDICATION: joey nodule seen in imaging study COMPARISON: Previous chest CT November 2023 TECHNIQUE: Helical CT scan of the chest was performed without intravenous contrast. Coronal and sagittal reformatted images were generated and reviewed. This CT exam was performed with one or more of the following dose reduction techniques: automated exposure control, adjustment of the mA and/or kV according to patient size, use of iterative reconstruction technique. DLP: 210 mGy-cm CHEST: THYROID: The thyroid is unremarkable. LUNGS: Severe centrilobular and paraseptal emphysema. Stable pulmonary nodules. Largest right pulmonary nodules measure 4.6 mm in the right upper lobe axial image 72, 4 mm along the right minor fissure axial image 90 and 2 x 4.8 mm in the peripheral or subpleural right lower lobe axial image 90 series 4. Largest left pulmonary nodule measures 3.5 mm in the left lower lobe axial image 65, 74 and 88 series 4. No new or enlarging pulmonary nodules. Central airways are clear. MEDIASTINUM: Small mediastinal lymph nodes. No enlarged lymph nodes. AISHA: Evaluation of the hilar regions is limited by lack of intravenous contrast material. CARDIOVASCULATURE: The heart is normal in size. There is no pericardial effusion. The thoracic aorta is normal in caliber. DEGREE OF CORONARY CALCIFICATION: mild PLEURA: There is no pleural effusion. No pneumothorax. MAIN AIRWAYS: The mainstem bronchi and proximal branches are patent. AXILLA: There is no axillary lymphadenopathy or chest wall mass.. BONES AND SOFT TISSUES: Degenerative changes of the spine. UPPER ABDOMEN: The visualized portions of the liver, spleen, and adrenals have an unremarkable unenhanced appearance. CT/CT chest wo IV con IMPRESSION: Moderate emphysema. Stable pulmonary nodules from April 2024, largest measuring [address] lung cancer screening program if patient meets eligibility. Electronically signed by: Sejal Arceo MD 09/17/2025 09:42 AM EST
--- OUTSIDE RECORDS SUMMARY | 2025-09-17 07:10 | XMS_ITS | Encounter Summary ---
Author Organization [employer] Address [address] [facility] 7t [place] [address] Care Team Providers Care Supervisor Personnel Clerks Name Role Phone Therese Caro SANTI Primary Care Provider [phone] Reason for Visit * Reason Onset Date Comments temp crown fell off 09/11/2024 Encounter Details Date Type Department Care Team ([facility] st Contact Info) Description 09/11/2024 Telephone [facility] [address] [place] [address] Kelly Bernal DDS [address] [place] [address] temp crown fell off Social History Tobacco [...] t he electric, gas, oil or water [employer] threatened to shut off services in your [...] Care Team (Late st Contact Info) Description 12/10/2025 3:15 PM EST Office Visit [facility] [address] [place] [address] Therese Caro ANP [address] [place] [address] 01/07/2026 8:45 AM EST Office Visit [facility] [address] [place] [address] Monse, Vivienne [address] [place] [address] documented as of this encounter Visit Diagnoses Not on filedocumented in this encounter Care Teams Supervisor Personnel Clerks Relationship Specialty Start Date End Date Therese Caro ANP [address] [place] [address] PCP - General Family Medicine 07/13/20 documented as of this encounter
--- OUTSIDE RECORDS SUMMARY | 2025-09-17 07:10 | XMS_ITS | Encounter Summary ---
Author Organization [employer] Address [address] [place] [address] Care Team Providers Care Health Informatics Advisor Name Role Phone Therese Caro Primary Care Provider [phone] Encounter Details Date Type Department Care Team (Latest Contact Info) Description 03/22/2019 Abstract [facility] Dental, Provider, DDS Social History Tobacco [...] Description 12/10/2025 3:15 PM EST Office Visit [facility] [address] [place] [address] Therese Caro ANP [address] [place] [address] 01/07/2026 8:45 AM EST Office Visit [facility] [address] [place] [address] Monse, Vivienne [address] [place] [address] documented as of this encounter Visit Diagnoses Not on filedocumented in this encounter Care Teams Health Informatics Advisor Relationship Specialty Start Date End Date Therese Caro ANP [address] [place] [address] PCP - General Family Medicine 07/13/20 documented as of this encounter
--- OUTSIDE RECORDS SUMMARY | 2025-09-17 07:10 | XMS_ITS | Encounter Summary ---
Author Organization [employer] Address [address] [place] [address] Care Team Providers Care General Operations Agent Name Role Phone Therese Caro Primary Care Provider [phone] Encounter Details Date Type Department Care Team (Latest Contact Info) Description 01/13/2021 Abstract [facility] Dental, Provider, DDS Social History [...] Description 12/10/2025 3:15 PM EST Office Visit [facility] [address] [place] [address] Therese Caro ANP [address] [place] [address] 01/07/2026 8:45 AM EST Office Visit [facility] [address] [place] [address] Monse, Vivienne [address] [place] [address] documented as of this encounter Visit Diagnoses Not on filedocumented in this encounter Care Teams General Operations Agent Relationship Specialty Start Date End Date Therese Caro ANP [address] [place] [address] PCP - General Family Medicine 07/13/20 documented as of this encounter
--- OUTSIDE RECORDS SUMMARY | 2025-09-17 07:10 | XMS_ITS | Encounter Summary ---
Author Organization [email or web address] Address [address] [facility] [address] [place] [address] Care Team Providers Care Securities Attorney Name Role Phone Therese Caro Primary Care Provider [phone] Reason for Visit * Reason Onset Date Comments November recall 09/15/2025 Encounter Details Date Type Department Care Team ([facility] st Contact Info) Description 09/15/2025 Telephone [facility] [address] [place] [address] Therese Caro ANP [address] [place] [address] November recall Social History Tobacco Use Types Packs/Day Years Used Date Smoking Tobacco: Every Day Cigarettes Passive Smoke Exposure: Current Smokeless Tobacco: Never Alcohol Use Standard Drinks/Week Comments Not Currently 0 (1 standard drink = 0.6 oz pur e alcohol) Depression Answer Date Recorded Patient Health Questionnaire-9 Score 0 06/03/2025 Patient Health Questionnaire-9 Score 0 06/03/2025 Last PHQ-9: Questionnaire Data Not on file 0 06/03/2025 Housing Stability Answer Date Recorded What is your housing situation today? I have karuna hurtado 05/27/[address] you li ve. Do you have problems with any of the following? None of the above 05/27/2025 Food Insecurity Answer Date Recorded Within the past 12 months, y ou worried that your food would run out before you got money to buy more: Never True 05/27/2025 Within the past 12 months,th e food you bought just didn't last and you didn't have enough money to get more: Never True Transportation Answer Date Recorded In the past 12 months, has l ack of transportation kept you from medical appts, meetings, work or from getting things needed for daily living? No 05/27/2025 Utilities Answer Date Recorded In the past 12 months, has t he electric, gas, oil or water company threatened to shut off services in your home? No 05/27/2025 Depression Answer Date Recorded Patient Health Questionnaire-2 Score 0 06/03/2025 Internet Access Answer Date Recorded Internet Access [...] encounter Miscellaneous Notes * Telephone Encounter - Carmen Blandon MA - 09/15/2025 9:06 AM EST Telephone call to patient to schedule the following recall: Visit type: Follow up Appointment notes: Lipids Patient agree to appointment on 12/10/2025 at 3:15 PM with Gordo. documented in this encounter Plan of Treatment Upcoming Encounters Date Type Department Care Team (Late st Contact Info) Description 12/10/2025 3:15 PM EST Office Visit [facility] [address] [place] [phone] Therese Caro ANP [address] [place] [address] 01/07/2026 8:45 AM EST Office Visit [facility] D[facility] [address] [place] [address] Monse, Vivienne [address] [place] [address] documented as of this encounter Visit Diagnoses Not on filedocumented in this encounter Additional Health Concerns Assessment Noted Time PHQ-9 Depression Total Score: 0 06/03/20 25 8:50 AM EDT documented as of this encounter Care Teams Securities Attorney Relationship Specialty Start Date End Date Therese Caro ANP [address] [place] [phone] PCP - General Family Medicine 07/13/20 documented as of this encounter
--- OUTSIDE RECORDS SUMMARY | 2025-09-17 07:10 | XMS_ITS | Clinical Summary ---
Author Organization [employer] Address 75 [facility] [address] [place] [address] Care Team Providers Care Community Mental Health Social Worker Name Role Phone Therese Caro Primary Care Provider [phone] Allergies Active Allergy Reactions Criticality Noted Date Comments Penicillins Hives 12/06/2010 Medications triamcinolone (Kenalog) 0.1 % creamIndication s:Rash Apply topically 2 times daily. To rash 45 g 5 Active acetaminophen (Tylenol) 500 MG tabletIndicatio ns:Low back pain at multiple sites 1-2 tabs as needed every 8 hours as needed for pain 120 tablet 1 5 Active fluticasone (Flonase Allergy Relief) 50 MCG/ACT nasal sprayIndication s:Seasonal allergic rhinitis due to other allergic trigger Administer 1 spray into each nostril Once per day. Shake gently. Before first use, prime pump. After use, clean tip and replace cap. 16 g 1 5 11/21/19 26 Active nicotine (Nicoderm CQ) 7 MG/24HR patchIndication s:Tobacco dependence syndrome Place 1 patch on the skin 1 (one) time each day at the same time. 42 patch 1 5 Active rosuvastatin (Crestor) 5 MG tabletIndicatio ns:Dyslipidemia Take 1 tablet (5 mg) by mouth Once per day. 90 tablet 3 5 06/03/20 26 Active Aspirin Low Dose 81 MG EC tabletIndicatio ns:Cardiovascul ar event risk 1 tablet daily by mouth 90 tablet 3 5 Active Active Problems Problem Noted Date Diagnosed Date Stage 3 grade B generalized periodontitis per AAP/EFP 2017 classification 07/02/2025 Missing teeth, acquired 07/02/2025 Generalized gingival recession 07/02/2025 Ill-fitting dentures 12/20/2024 Partially edentulous maxilla 06/05/2024 Partial edentulism 05/08/2024 Closed fracture of tooth 11/24/2023 Localized gingival recession 10/31/2023 Dental calculus 10/31/2023 Periodontal disease 02/08/2023 Dental caries 01/05/2023 Degeneration of lumbar intervertebral disc 07/10 Dyslipidemia 08/19/2015 History of drug abuse ([facility]) 08/19/2015 Psychotic disorder ([facility]) 08/19/2015 Tobacco dependence syndrome 08/19/2015 Tubular adenoma 08/19/2015 Encounters Date Type Department Care Team Description 09/15/[address] [facility] [address] [place] [phone] Therese Caro ANP Emperatriz recall 08/11/2025 2:00 PM EDT Office Visit [facility] [address] [place] [phone] Therese Caro ANP Dyslipidemia (Primary Dx); Cardiovascular event risk 08/11/2025 Travel 08/08/[address] [facility] [address] [place] [phone] Therese Caro ANP chart prep 07/30/2025 11:00 AM EDT Office Visit [facility] [address] [place] [address] Vivienne Shea Stage 3 grade B generalized periodontitis per AAP/EFP 2017 classification (Primary Dx); Dental calculus 07/28/2025 2:00 PM EDT Office Visit [facility] [address] [place] [address] Vivienne Shea Localized gingival recession (Primary Dx); Dental calculus; Stage 3 grade B generalized periodontitis per AAP/EFP 2017 classification 07/02/2025 8:00 AM EDT Office Visit [facility] [address] [place] [address] Vivienne Shea Stage 3 grade B generalized periodontitis per AAP/EFP 2017 classification (Primary Dx); Dental calculus; Missing teeth, acquired; Generalized gingival recession; Encounter for dental examination; Periodontal disease from Last 3 Months Immunizations Immunization Administration [...] Passive Smoke Exposure: Current Smokeless Tobacco: Never Tobacco Cessation:Ready to Q [...] Sign Reading Time Taken Comments Blood Pressure 110/78 08/11/2025 1:54 PM EDT Pulse 88 08/11/2025 1:54 PM EDT Temperature 37.2 C (99 F) 08/11/2025 1:54 PM EDT Respiratory Rate 20 08/11/2025 1:54 PM EDT Oxygen Saturation 98% 08/11/2025 1:54 PM EDT Inhaled Oxygen Concentration - - Weight 89.1 kg (196 lb 6 oz) 08/11/2025 1:54 PM EDT Height 172.7 cm (5' 8 ) 08/11/2025 1:54 PM EDT Body Mass Index 29.86 08/11/2025 1:54 PM EDT Plan of Treatment Upcoming Encounters Date Type Department Care Team (Late st Contact Info) Description 12/10/2025 3:15 PM EST Office Visit [facility] [address] [place] [address] Therese Caro ANP [address] [place] [address] 01/07/2026 8:45 AM EST Office Visit [facility] [address] [place] [address] Vivienne Shea [address] [place] [address] Health Maintenance Due Date Last Done Comments CT Colonography 1955 FIT DNA/Cologuard 1955 FIT 1955 FOBT 1955 Sigmoidoscopy 1955 Colonoscopy 10/14/2025 10/14/2015 Colorectal Cancer Screening 10/14/2025 Dental Oral Exam 01/03/2026 07/02/2025, , 01/05/2023 Dental Prophylaxis 01/03/2026 07/02/2025, 0 05/08/2024, 10/31/2023, Additional history exists Influenza Vaccine (#1) 2026 , 07/26/2022, 09/14/2020, Additional history exists Postponed from 07/14/2025 (Patient Refused) SDOH Screening 05/27/2026 05/27/2025 Alcohol/Substance Use Screening 06/03/2026 06/03/2025 Depression Screening 06/03/2026 06/03/2025, 06/03/20 Dental X-Ray: Bitewings 07/03/2026 07/02/20, 05/08/2024, 01/05/2023 COVID-19 Vaccine ( season) 2026 11/21/2024, 10/12/2021, 03/15/2021, Additional history exists Postponed from 07/14/2025 (Patient Refused) Tobacco Screening 08/11/2026 08/11/2025 Dental X-Ray: Full Mouth 05/09/2027 05/08/2024, 01/2021 DTaP/Tdap/Td Vaccines (2 - Td or Tdap) 05/11/2027 05/11/2017 Lipid Panel 11/25/2029 11/25/2024, 02/2024, 02/09/2022, Additional history exists RSV Patients and Patients Aged 60 years or older (1 - 1-dose 75+ series) 2030 Zoster Vaccines Completed 01/02/2024, 12/0 03/2023, 09/06/2017 Hepatitis C Screening Completed 07/02/2024, 024 Pneumococcal Vaccine: 50+ Years Completed 11/21/2024, 07/26/2022, [...] Procedure Name Priority Date/Time Associated Diagnosis Comments CASE PRESENTATION, DETAILED AND EXTENSIVE TREATMENT PLANNING Routine 07/30/2025 11:00 AM EDT Stage 3 grade B generalized periodontitis per AAP/EFP 2017 classification Dental calculus LR PERIODONTAL SCALING AND ROOT PLANING - 1 TO 3 TEETH PER QUADRANT Routine 07/30/2025 11:00 AM EDT Stage 3 grade B generalized periodontitis per AAP/EFP 2017 classification Dental calculus UR PERIODONTAL SCALING AND ROOT PLANING - 1 TO 3 TEETH PER QUADRANT Routine 07/30/2025 11:00 AM EDT Stage 3 grade B generalized periodontitis per AAP/EFP 2017 classification Dental calculus CASE PRESENTATION, DETAILED AND EXTENSIVE TREATMENT PLANNING Routine 07/28/2025 2:00 PM EDT Dental calculus Stage 3 grade B generalized periodontitis per AAP/EFP 2017 classification LL PERIODONTAL SCALING AND ROOT PLANING - 1 TO 3 TEETH PER QUADRANT Routine 07/28/2025 2:00 PM EDT Dental calculus Stage 3 grade B generalized periodontitis per AAP/EFP 2017 classification UL PERIODONTAL SCALING AND ROOT PLANING - 1 TO 3 TEETH PER QUADRANT Routine 07/28/2025 2:00 PM EDT Dental calculus Stage 3 grade B generalized periodontitis per AAP/EFP 2017 classification COMPREHENSIVE PERIODONTAL EVALUATION - NEW OR ESTABLISHED PATIENT Routine 07/02/2025 8:00 AM EDT Stage 3 grade B generalized periodontitis per AAP/EFP 2017 classification Dental calculus Missing teeth, acquired Generalized gingival recession Encounter for dental examination Periodontal disease PERIODIC ORAL EVALUATION - ESTABLISHED PATIENT Routine 07/02/2025 8:00 AM EDT Stage 3 grade B generalized periodontitis per AAP/EFP 2017 classification Dental calculus Missing teeth, acquired Generalized gingival recession Encounter for dental examination Periodontal disease BITEWINGS - 3 RADIOGRAPHIC IMAGES Routine 07/02/2025 8:00 AM EDT Stage 3 grade B generalized periodontitis per AAP/EFP 2017 classification Dental calculus Missing teeth, acquired Generalized gingival recession 22,23,24,25 INTRAORAL - PERIAPICAL EACH ADDITIONAL RADIOGRAPHIC IMAGE Routine 07/02/2025 8:00 AM EDT Stage 3 grade B generalized periodontitis per AAP/EFP 2017 classification Dental calculus Missing teeth, acquired Generalized gingival recession 6,7 INTRAORAL - PERIAPICAL EACH ADDITIONAL RADIOGRAPHIC IMAGE Routine 07/02/2025 8:00 AM EDT Stage 3 grade B generalized periodontitis per AAP/EFP 2017 classification Dental calculus Missing teeth, acquired Generalized gingival recession ORAL HYGIENE INSTRUCTIONS Routine 07/02/2025 8:00 AM EDT Stage 3 grade B generalized periodontitis per AAP/EFP 2017 classification Dental calculus Missing teeth, acquired Generalized gingival recession CASE PRESENTATION, DETAILED AND EXTENSIVE TREATMENT PLANNING Routine 07/02/2025 8:00 AM EDT Stage 3 grade B generalized periodontitis per AAP/EFP 2017 classification Dental calculus Missing teeth, acquired Generalized gingival recession PROPHYLAXIS - ADULT Routine 07/02/2025 8 :00 AM EDT Stage 3 grade B generalized periodontitis per AAP/EFP 2017 classification Dental calculus Missing teeth, acquired Generalized gingival recession 10,11 INTRAORAL - PERIAPICAL EACH ADDITIONAL RADIOGRAPHIC IMAGE Routine 07/02/2025 8:00 AM EDT Stage 3 grade B generalized periodontitis per AAP/EFP 2017 classification Dental calculus Missing teeth, acquired Generalized gingival recession 8,9 INTRAORAL - PERIAPICAL FIRST RADIOGRAPHIC IMAGE Routine 07/02/2025 8:00 AM EDT Stage 3 grade B generalized periodontitis per AAP/EFP 2017 classification Dental calculus Missing teeth, acquired Generalized gingival recession LIPID PANEL, STANDARD Routine 11/25/2024 9:15 AM EST Dyslipidemia HEPATITIS C AB W/REFL TO HCV RNA, QN, PCR Routine 07/02/2024 12:54 PM EDT Routine screening for STI (sexually transmitted infection) INTRAORAL - COMPLETE SERIES OF RADIOGRAPHIC IMAGES Routine 05/08/2024 3:00 PM EDT Missing teeth, acquired Dental calculus Localized gingival recession Dental caries HM COLONOSCOPY Routine 10/14/2015 from Last 3 Months or Most Recently Relevant to Health Maintenance Results * (ABNORMAL) Lipid Panel, Standard (11/25/2024 9:15 AM EST) Triglycerides 322(H) <150 mg/dL [facility] Comment:Desirable Triglyceri de: less than 150 mg/dLBorderline High Triglyceride 150-199 mg/dLHigh Triglyceride: 200-499 mg/dLVery High Triglyceride: greater than or equal to 5OO mg/dL Cholesterol 230(H) <200 mg/dL [facility] Comment:Desirable Cholestero l: less than 200 mg/dLBorderline High Cholesterol: 200-239 mg/dLHigh Cholesterol: greater than 239 mg/dL LDL Cholesterol Calculated 133(H) <100 mg/dL [facility] Comment:Desirable LDL: less than 100 mg/dLNear Optimal/Above Optimal LDL: 110- 129 mg/dLBorderline High LDL: 130-159 mg/dLHigh LDL: 160-189 mg/dLVery High LDL: greater than or equal to 190 mg/dL HDL Cholesterol 33(L) >40 mg/dL [facility] Comment:Desirable HDL: great er than 40 mg/dL Note: This HDL assay may give artificially low results in patients with liver disease. Blood Venous blood specimen / Unknown 11/25/2024 9:15 AM EST 11/25/2024 11:18 AM EST [facility] BLOOD ORDERABLES Final Resul t [facility] [address] [place], [place] [phone] * (ABNORMAL) Hepatitis C Antibody with Reflex to HCV, RNA, Quantitative, Real- Time PCR (07/02/2024 12:54 PM EDT) Hepatitis C Antibody Reactive( A) Nonreactive [facility] Comment:Presumptive evidence of antibodies to HCV. Blood Venous blood specimen / Unknown 07/02/2024 12:54 PM EDT 07/02/2024 1:33 PM EDT Therese HANCOCK [facility] BLOOD ORDERABLES Final Resul t [facility] [address] [place] [address] [phone] * Colonoscopy (10/14/2015) Colonoscopy Normal Normal Historical Provider MD HEALTH MAINTENANCE Final Result from Last 3 Months or Most Recently Relevant to Health Maintenance Insurance [facility] [address] [facility] Care Teams Community Mental Health Social Worker Relationship Specialty Start Date End Date Therese Caro ANP [address] [place] [address] PCP - General Family Medicine 07/13/20
--- OUTSIDE RECORDS SUMMARY | 2025-09-17 07:10 | XMS_ITS | Encounter Summary ---
Author Organization [employer] Address [address] [place] [address] [address], [place] [address] Care Team Providers Care Cyber Policy And Strategy Planner Name Role Phone Therese Caro Primary Care Provider [phone] Reason for Referral * Consultation (Routine) - Closed Specialty Diagnoses / Procedures Referred By Alvaro cm Referred To Contact Physical Therapy Diagnoses Acute neck pain Tonya Moreno MD [address] [place] [address] Phone: tel: fax: [facility] [address] [place] [address] Phone: tel: fax: Referral ID Status Reason Start Date Expiration Date V isits Requested Visits Authorized [id number] Closed Specialty Services Required 04/03/2025 04/03/2026 1 1 Encounter Details Date Type Department Care Team ([facility] st Contact Info) Description 04/03/2025 Orders Only [facility] [address] [place] [address] Tonya Moreno MD [address] [place], [place] [phone] Acute neck pain (Primary Dx) Social History Tobacco Use Types [...] Description 12/10/2025 3:15 PM EST Office Visit [facility] [address] [place] [address] Therese Caro ANP [address] [place] [address] 01/07/2026 8:45 AM EST Office Visit [facility] ADULT DENTAL [address] [place] [address] Vivienne Shea [address] [place] [address] Scheduled Referrals Name Type Priority Associated Diagnoses Orde r Schedule Referral to Physical Therapy Outpatient Referral Routine Acute neck pain Expected: 04/03/2025 (Approximate), Expires: 04/03/2026 documented as of this encounter Visit Diagnoses Diagnosis Acute neck pain- Primary documented in this encounter Care Teams Cyber Policy And Strategy Planner Relationship Specialty Start Date End Date Therese Caro ANP [address] [place] [address] PCP - General Family Medicine 07/13/20 documented as of this encounter
== END 2025-09-17 07:07 | disposition home or self-care (01) ==
LOC: HO.CT 07:06
PROVIDERS: PCP Nurse Practitioner Primary Care; Visit Provider Nurse Practitioner Primary Care
DX: R91.1 Solitary pulmonary nodule (principal); F17.200 Nicotine dependence, unspecified, uncomplicated
CPT/HCPCS: 71250

== ENCOUNTER → 2025-09-17 07:09 | Outpatient (BNV) | payer OTHER, SELFPAY | PROVIDERS: PCP Nurse Practitioner Primary Care; Visit Provider Radiology Diagnostic Radiology | DX: J43.9 Emphysema, unspecified (principal); R91.8 Other nonspecific abnormal finding of lung field | CPT/HCPCS: 71250 ==